=== PATIENT | female | born 1955 | race Caucasian/White ===

== ENCOUNTER → 2017-09-09 09:01 | Outpatient (REF) | payer BC, SELFPAY ==
[2017-09-09 15:11] LABS: Amphetamine/Metha Screen,Urine Negative ng/mL (<1000); Barbiturates Screen,Urine Negative ng/mL (<200); Benzodiazepines Screen,Urine Positive ng/mL (200); Cannabinoid Screen,Urine Negative ng/mL (<50); Cocaine Screen,Urine Negative ng/g (<300); Methadone Screen,Urine Negative ng/mL (<300); Opiate Screen,Urine Negative ng/mL (<300); Phencyclidine Screen,Urine Negative ng/mL (<25)
== END ==
LOC: LAB 09:01
PROVIDERS: Visit Provider Emergency Medicine
DX: Z79.899 Other long term (current) drug therapy (principal)
CPT/HCPCS: 80305

== ENCOUNTER → 2017-12-08 08:48 | Outpatient (REF) | payer BC, SELFPAY ==
[2017-12-08 13:43] LABS: Amphetamine/Metha Screen,Urine Negative ng/mL (<1000); Barbiturates Screen,Urine Negative ng/mL (<200); Benzodiazepines Screen,Urine Positive ng/mL (200); Cannabinoid Screen,Urine Negative ng/mL (<50); Cocaine Screen,Urine Negative ng/g (<300); Methadone Screen,Urine Negative ng/mL (<300); Opiate Screen,Urine Negative ng/mL (<300); Phencyclidine Screen,Urine Negative ng/mL (<25)
== END ==
LOC: LAB 08:48
PROVIDERS: Visit Provider Nurse Practitioner Family
DX: Z79.899 Other long term (current) drug therapy (principal)
CPT/HCPCS: 80305

== ENCOUNTER → 2018-02-16 09:14 | Outpatient (REF) | payer BC, SELFPAY ==
[2018-02-16 15:07] LABS: Amphetamine/Metha Screen,Urine Negative ng/mL (<1000); Barbiturates Screen,Urine Negative ng/mL (<200); Benzodiazepines Screen,Urine Positive ng/mL (<200); Cannabinoid Screen,Urine Negative ng/mL (<50); Cocaine Screen,Urine Negative ng/mL (<300); Methadone Screen,Urine Negative ng/mL (<300); Opiate Screen,Urine Negative ng/mL (<300); Phencyclidine Screen,Urine Negative ng/mL (<25)
== END ==
LOC: LAB 09:14
PROVIDERS: Visit Provider Nurse Practitioner Family
DX: Z79.899 Other long term (current) drug therapy (principal)
CPT/HCPCS: 80305

== ENCOUNTER → 2018-05-18 14:26 | Outpatient (CLI) | payer MEDICAID, SELFPAY ==
[2018-05-18 15:04] LABS: Amphetamine/Metha Screen,Urine Negative ng/mL (<1000); Barbiturates Screen,Urine Negative ng/mL (<200); Benzodiazepines Screen,Urine Positive ng/mL (<200); Cannabinoid Screen,Urine Negative ng/mL (<50); Cocaine Screen,Urine Negative ng/mL (<300); Methadone Screen,Urine Negative ng/mL (<300); Opiate Screen,Urine Negative ng/mL (<300); Phencyclidine Screen,Urine Negative ng/mL (<25)
[2018-05-23 12:17] LABS: Alprazolam Negative (Cutoff=100); Benzodiazepines Negative ng/mL (Cutoff=100); Clonazepam Negative (Cutoff=100); Flurazepam Negative (Cutoff=100); Lorazepam Negative (Cutoff=100); Midazolam Negative (Cutoff=100); Temazepam Negative (Cutoff=100); Triazolam Negative (Cutoff=100)
== END ==
PROVIDERS: Visit Provider Nurse Practitioner Family
DX: Z79.899 Other long term (current) drug therapy (principal)
CPT/HCPCS: 80305; 80346

== ENCOUNTER → 2018-10-03 06:09 | Outpatient (CLI) | payer MEDICAID, SELFPAY ==
--- NOTE | 2018-10-03 06:21 | NM_ITS ---
CARDIOLITE SPECT MYOCARDIAL PERFUSION LEXISCAN, REST AND STRESS: [facility] REVIEW QGS EF AND WALL MOTION EVALUATION: QPS - PERFUSION EVALUATION HISTORY: Chest pain, SOB, Fatigue, HTN, Tobacco use, Family history DOSE: 10.70 mCi technetium 99m mibi intravenously at rest followed by 32.3 mCi technetium 99m mibi following the intravenous ministration of 0.4 mg of Lexiscan. Resting blood pressure is 162/82. Stress blood pressure 131/58. FINDINGS: Ejection fraction is calculated to be 77%. Stress images reveal decreased activity in the inferior lateral wall. Rest images reveal improved activity in the lateral wall with decreased activity in the inferior wall IMPRESSION: Reversible ischemia in the lateral wall with a fixed defect in the inferior wall. Normal ejection fraction and normal wall motion. This is a high risk stress test
--- NOTE | 2018-10-03 07:17 | HMH.ITSHM ---
Current Home Medications as stated by this patient Jacqueline Pittman or personal service representative. []ATORVASTATIN LISINOPRIL ASA PROAIR VITAMIN D3 VITAMIN D
== END ==
PROVIDERS: PCP Emergency Medicine; Visit Provider Emergency Medicine
DX: R07.9 Chest pain, unspecified (principal)
CPT/HCPCS: 78452; 93017; A9502; J2785

== ENCOUNTER → 2019-01-10 13:59 | Outpatient (CLI) | payer MEDICAID, SELFPAY ==
[2019-01-10 15:24] LABS: Amphetamine/Metha Screen,Urine Negative ng/mL (<1000); Barbiturates Screen,Urine Negative ng/mL (<200); Benzodiazepines Screen,Urine Positive ng/mL (<200); Cannabinoid Screen,Urine Negative ng/mL (<50); Cocaine Screen,Urine Negative ng/mL (<300); Methadone Screen,Urine Negative ng/mL (<300); Opiate Screen,Urine Negative ng/mL (<300); Phencyclidine Screen,Urine Negative ng/mL (<25)
== END ==
PROVIDERS: Visit Provider Emergency Medicine
DX: Z79.899 Other long term (current) drug therapy (principal)
CPT/HCPCS: 80305

== ENCOUNTER → 2019-04-02 13:53 | Outpatient (CLI) | payer MEDICAID, SELFPAY ==
[2019-04-02 17:02] LABS: Amphetamine/Metha Screen,Urine Negative ng/mL (<1000); Barbiturates Screen,Urine Negative ng/mL (<200); Benzodiazepines Screen,Urine Positive ng/mL (<200); Cannabinoid Screen,Urine Negative ng/mL (<50); Cocaine Screen,Urine Negative ng/mL (<300); Methadone Screen,Urine Negative ng/mL (<300); Opiate Screen,Urine Negative ng/mL (<300); Phencyclidine Screen,Urine Negative ng/mL (<25)
== END ==
PROVIDERS: Visit Provider Emergency Medicine
DX: F41.9 Anxiety disorder, unspecified (principal)
CPT/HCPCS: 80305

== ENCOUNTER → 2019-07-02 13:54 | Outpatient (CLI) | payer OTHER, SELFPAY ==
[2019-07-02 14:08] LABS: Amphetamine/Metha Screen,Urine Negative ng/mL (<1000); Barbiturates Screen,Urine Negative ng/mL (<200); Benzodiazepines Screen,Urine Positive ng/mL (<200); Cannabinoid Screen,Urine Negative ng/mL (<50); Cocaine Screen,Urine Negative ng/mL (<300); Methadone Screen,Urine Negative ng/mL (<300); Opiate Screen,Urine Negative ng/mL (<300); Phencyclidine Screen,Urine Negative ng/mL (<25)
[2019-07-05 13:56] LABS: Alprazolam N; Benzodiazepines N; Clonazepam N; Flurazepam N; Lorazepam N; Midazolam N; Temazepam N; Triazolam N
== END ==
PROVIDERS: Visit Provider Emergency Medicine
DX: F41.9 Anxiety disorder, unspecified (principal); Z79.899 Other long term (current) drug therapy
CPT/HCPCS: 80305; 80346

== ENCOUNTER → 2019-10-29 13:22 | Outpatient (CLI) | payer OTHER, SELFPAY ==
[2019-10-29 15:03] LABS: Basophils % 0.7 % (0.1-2.0); Eosinophils # 0.1 K/mm3 (0.0-0.4); Hematocrit 47.7 % (37.0-47.0); Lymphocytes # 1.2 K/mm3 (0.7-4.5); Lymphocytes % 21.2 % (10-50); Mean Corpuscular HGB Conc 31.4 g/dL (31.8-35.4); Mean Corpuscular Hemoglobin 28.5 pg (27.0-31.2); Mean Corpuscular Volume 90.8 fl (81-99); Mean Platelet Volume 9.7 fl (7.4-10.4); Monocytes # 0.3 K/mm3 (0.1-1.0); Monocytes % 4.5 % (1.7-9.3); Neutrophils # 4.1 K/mm3 (1.8-7.8); Neutrophils % 71.6 % (37.0-80.0); Platelet Count 171 K/mm3 (142-424); Red Blood Count 5.25 M/mm3 (4.20-5.40); Red Cell Distribution Width 13.8 % (11.5-17.5); White Blood Count 5.7 K/mm3 (4.8-10.8)
[2019-10-29 15:14] LABS: Alanine Aminotransferase 61 U/L (12-78); Albumin Level 4.5 g/dl (3.5-5.0); Alkaline Phosphatase 114 U/L (38-126); Anion Gap 7.1 mEq/L (5-15); Aspartate Amino Transferase 91 U/L (14-36); Bilirubin,Total 0.4 mg/dl (0.2-1.3); Blood Urea Nitrogen 19 mg/dl (7-17); Carbon Dioxide 33 mmol/L (22.0-30.0); Chloride 103 mmol/L (98-107); Cholesterol 103 mg/dl (140-200); Estimated Glomerular Filt Rate 72 ml/min (>60); GFR (African American) 87 ML/MIN (>60); Globulin 4.4 g/dL (1.3-3.2); Glucose 115 mg/dl (74-100); HDL Cholesterol 34 mg/dl (40-60); Potassium 4.1 mmoL/L (3.5-5.1); Sodium 139 mmol/L (136-145); Total Protein,Serum 8.9 g/dl (6.3-8.2); Triglycerides 294 mg/dl (30-150); VLDL Cholesterol 59 mg/dL (0-40)
[2019-10-29 15:25] LABS: Direct LDL Cholesterol 33.46 mg/dL (100-129)
[2019-10-29 15:31] LABS: T4 (Thyroxine) 7.9 ug/dl (5.53-11.0)
[2019-10-29 15:44] LABS: Thyroid Stimulating Hormone 3.99 uIU/mL (0.465-4.68)
[2019-10-30 15:22] LABS: Vitamin D 25 Hydroxy 73.1 ng/mL (30.0-100.0)
== END ==
PROVIDERS: Visit Provider Emergency Medicine
DX: F41.9 Anxiety disorder, unspecified (principal); M25.569 Pain in unspecified knee
CPT/HCPCS: 80053; 80061; 82652; 84436; 84443; 85025

== ENCOUNTER → 2020-07-28 14:13 | Outpatient (CLI) | payer MEDICARE, MEDICAID, SELFPAY ==
[2020-07-28 15:37] LABS: Amphetamine/Metha Screen,Urine Negative ng/ml (<1000); Barbiturates Screen,Urine Negative ng/ml (<200)
[2020-07-28 15:38] LABS: Benzodiazepines Screen,Urine Positive ng/ml (<200)
[2020-07-28 15:39] LABS: Cannabinoid Screen,Urine Negative ng/ml (<50); Cocaine Screen,Urine Negative ng/ml (<300)
[2020-07-28 15:40] LABS: Methadone Screen,Urine Negative ng/ml (<300)
[2020-07-28 15:42] LABS: Opiate Screen,Urine Negative ng/ml (<300)
[2020-07-28 16:05] LABS: Phencyclidine Screen,Urine Negative ng/ml (<25)
== END ==
PROVIDERS: Visit Provider Emergency Medicine
DX: Z79.899 Other long term (current) drug therapy (principal)
CPT/HCPCS: 80305

== ENCOUNTER → 2021-01-20 15:21 | Outpatient (CLI) | payer MEDICARE, MEDICAID, SELFPAY ==
[2021-01-20 15:58] LABS: Amphetamine/Metha Screen,Urine Negative ng/ml (<1000)
[2021-01-20 15:59] LABS: Barbiturates Screen,Urine Negative ng/ml (<200)
[2021-01-20 16:01] LABS: Benzodiazepines Screen,Urine Positive ng/ml (<200)
[2021-01-20 16:02] LABS: Cannabinoid Screen,Urine Negative ng/ml (<50); Cocaine Screen,Urine Negative ng/ml (<300)
[2021-01-20 16:04] LABS: Methadone Screen,Urine Negative ng/ml (<300); Opiate Screen,Urine Negative ng/ml (<300)
[2021-01-20 16:05] LABS: Phencyclidine Screen,Urine Negative ng/ml (<25)
== END ==
PROVIDERS: Visit Provider Emergency Medicine
DX: Z79.899 Other long term (current) drug therapy (principal)
CPT/HCPCS: 80305

== ENCOUNTER → 2021-01-23 09:50 | Outpatient (CLI) | payer MEDICARE, MEDICAID, SELFPAY ==
[2021-01-23 10:38] LABS: Basophils # 0.1 K/mm3 (0-0.2); Basophils % 1.2 % (0.1-2.0); Eosinophils # 0.1 K/mm3 (0.0-0.4); Eosinophils % 1.6 % (0.1-12.0); Hematocrit 41.1 % (37.0-47.0); Hemoglobin 13.6 g/dL (12.2-16.2); Lymphocytes % 19.7 % (10-50); Mean Corpuscular HGB Conc 33.2 g/dL (31.8-35.4); Mean Corpuscular Hemoglobin 28.4 pg (27.0-31.2); Mean Corpuscular Volume 85.4 fl (81-99); Monocytes # 0.2 K/mm3 (0.1-1.0); Monocytes % 4.6 % (1.7-9.3); Neutrophils # 3.8 K/mm3 (1.8-7.8); Neutrophils % 72.8 % (37.0-80.0); Platelet Count 106 K/mm3 (142-424); Red Blood Count 4.81 M/mm3 (4.20-5.40); Red Cell Distribution Width 14.5 % (11.5-17.5); White Blood Count 5.2 K/mm3 (4.8-10.8)
[2021-01-23 11:10] LABS: Chloride 103 mmol/L (98-107); Sodium 140 mmol/L (136-145)
[2021-01-23 11:13] LABS: Alanine Aminotransferase 63 U/L (12-78); Albumin/Globulin Ratio 1.1 (1.1-1.8); Alkaline Phosphatase 125 U/L (38-126); Aspartate Amino Transferase 73 U/L (14-36); Bilirubin,Total 0.4 mg/dl (0.2-1.3); Blood Urea Nitrogen 15 mg/dl (7-17); Carbon Dioxide 28 mmol/L (22.0-30.0); Cholesterol 106 mg/dl (140-200); Estimated Glomerular Filt Rate 84 ml/min (>60); GFR (African American) 101 ML/MIN (>60); Globulin 3.8 g/dL (1.3-3.2); Total Protein,Serum 7.8 g/dl (6.3-8.2); Triglycerides 191 mg/dl (30-150); VLDL Cholesterol 38 mg/dL (0-40)
[2021-01-23 11:14] LABS: Chol/HDL Ratio 3.4 (1-3.5); Glucose 98 mg/dl (74-100); HDL Cholesterol 31 mg/dl (40-60)
[2021-01-23 11:24] LABS: Direct LDL Cholesterol 35.16 mg/dL (100-129)
[2021-01-23 11:28] LABS: 25-OH Vitamin D, Total 33.2 ng/mL (30-100)
[2021-01-23 11:31] LABS: Free T4 (Free Thyroxine) 0.94 ng/dl (0.78-2.19)
[2021-01-23 11:44] LABS: Thyroid Stimulating Hormone 1.64 uIU/mL (0.465-4.68)
== END ==
PROVIDERS: Visit Provider Emergency Medicine
DX: E66.9 Obesity, unspecified (principal); R06.00 Dyspnea, unspecified; E55.9 Vitamin D deficiency, unspecified; Z68.32 Body mass index [BMI] 32.0-32.9, adult
CPT/HCPCS: 36415; 80053; 80061; 82306; 84439; 84443; 85025

== ENCOUNTER → 2021-07-13 15:30 | Outpatient (CLI) | payer MEDICARE, MEDICAID, SELFPAY | PROVIDERS: Visit Provider Emergency Medicine | DX: R05.9 Cough, unspecified (principal); U07.1 COVID-19 | CPT/HCPCS: C9803; U0003; U0005 ==

== ENCOUNTER → 2021-10-07 10:06 | Outpatient (CLI) | payer MEDICARE, MEDICAID, SELFPAY ==
[2021-10-07 14:42] LABS: Barbiturates Screen,Urine Negative ng/ml (<200); Benzodiazepines Screen,Urine Positive ng/ml (<200)
[2021-10-07 14:43] LABS: Amphetamine/Metha Screen,Urine Negative ng/ml (<1000)
[2021-10-07 14:44] LABS: Cannabinoid Screen,Urine Negative ng/ml (<50); Cocaine Screen,Urine Negative ng/ml (<300)
[2021-10-07 14:45] LABS: Methadone Screen,Urine Negative ng/ml (<300); Opiate Screen,Urine Negative ng/ml (<300)
[2021-10-07 14:46] LABS: Phencyclidine Screen,Urine Negative ng/ml (<25)
== END ==
PROVIDERS: PCP Emergency Medicine; Visit Provider Emergency Medicine
DX: Z79.899 Other long term (current) drug therapy (principal)
CPT/HCPCS: 80305

== ENCOUNTER 2022-03-15 09:34 | Emergency (ER) | payer MEDICARE, MEDICAID, SELFPAY ==
--- NOTE | 2022-03-15 10:10 | XR_ITS ---
FINAL REPORT CLINICAL HISTORY: FALL FINDINGS: 3 views of the left ribs were obtained. Anterolateral left 5th, 6th, and 7th rib fractures. Trace left pleural effusion. There is no pneumothorax. A single view of the chest demonstrates no acute cardiopulmonary process. IMPRESSION: Left anterolateral 5th, 6th and 7th rib fractures without pneumothorax. Reviewed, Interpreted and Dictated by Colleen Curiel MD Transcribed by Sam Smith Authenticated and [facility]
[2022-03-15 10:45] VITALS: BP 123/64; PULSE 90; RESP 18; TEMP 36.8; O2SAT 98; BMI 31.9
--- NOTE | 2022-03-15 11:11 | EXP.UTC ---
Discharge Plan Disposition Patient Disposition: Home, Self-Care Condition: Good Prescriptions Prescriptions: New lidocaine 5 % adhesive patch,medicated 1 patch topical DAILY Qty: 15 0RF Rx Instructions: leave on most painful area for up to 12 hrs then remove for 12 hours No Action aspirin 81 mg tablet,delayed release (DR/EC) See Rx Instructions .ROUTE .COMPLEX Qty: 30 6RF Dose Instruction: TAKE ONE TABLET BY MOUTH ONCE A DAY Rx Instructions: TAKE ONE TABLET BY MOUTH ONCE A DAY atorvastatin 80 mg tablet See Rx Instructions .ROUTE .COMPLEX Qty: 30 6RF Dose Instruction: TAKE ONE TABLET BY MOUTH AT BEDTIME Rx Instructions: TAKE ONE TABLET BY MOUTH AT BEDTIME ergocalciferol (vitamin D2) 1,250 mcg (50,000 unit) capsule See Rx Instructions .ROUTE .COMPLEX Qty: 4 3RF Dose Instruction: TAKE ONE CAPSULE BY MOUTH EVERY WEEK Rx Instructions: TAKE ONE CAPSULE BY MOUTH EVERY WEEK Trelegy Ellipta 100-62.5-25 mcg blister with device See Rx Instructions .ROUTE .COMPLEX Qty: 60 3RF Dose Instruction: INHALE 1 PUFF BY MOUTH ONCE A DAY Rx Instructions: INHALE 1 PUFF BY MOUTH ONCE A DAY losartan-hydrochlorothiazide 100-12.5 mg tablet 1 tab PO DAILY Qty: 30 5RF Rx Instructions: 1 tab PO daily; verapamil 120 mg capsule,ext rel. pellets 24 hr See Rx Instructions .ROUTE .COMPLEX Qty: 30 6RF Dose Instruction: TAKE ONE CAPSULE BY MOUTH ONCE A DAY Rx Instructions: TAKE ONE CAPSULE BY MOUTH ONCE A DAY diazepam 5 mg tablet 5 mg PO BID Qty: 60 2RF gabapentin 300 mg capsule 300 mg PO TID Qty: 90 2RF cetirizine 10 mg tablet See Rx Instructions .ROUTE .COMPLEX Qty: 90 3RF Dose Instruction: TAKE ONE TABLET BY MOUTH EVERY DAY Rx Instructions: TAKE ONE TABLET BY MOUTH EVERY DAY albuterol sulfate 90 mcg/actuation HFA aerosol inhaler See Rx Instructions .ROUTE .COMPLEX Qty: 8.5 3RF Dose Instruction: INHALE 2 PUFFS BY MOUTH EVERY 4 TO 6 HOURS NEEDED FOR SHORTNESS OF BREATH OR WHEEZING Rx Instructions: INHALE 2 PUFFS BY MOUTH EVERY 4 TO 6 HOURS NEEDED FOR SHORTNESS OF BREATH OR WHEEZING Referrals Follow up/Referrals: Herrera Kidd MD [Primary Care Provider] - See instructions Activity Restrictions/Add. Instructions Additional Instructions/Restrictions: *Ibuprofen braak 6 hours with meal as needed for pain/inflammation *Not additional anti-inflammatory like motrin, aleve, advil with the above amount of ibuprofen. You can still take Tylenol every 4 hours as needed if you need something else for pain *Ice 20 minutes every 2 hours for the first 48 hours after the initial injury followed by moist heat every 20 minutes 3-4 times a day to affected area Over the counter lidocaine patches may help with pain *Keep this area active, no movement leads to more stiffness, However take it easy and avoid heavy lifting pushing or pulling *Follow up with you family doctor if no improvement for further treatment ? Clinical Impressions Clinical Impression: Multiple rib fractures Qualifiers: Encounter type: initial encounter Fracture type: closed Laterality: left Qualified Code(s): S22.42XA - Multiple fractures of ribs, left side, initial encounter for closed fracture Instructions Patient Instructions: Rib Fracture, DI for Rib Fracture, Lidocaine Transdermal Patch Discharge ED Provider: Socorro Jo [facility] General Stated complaint: Fall@home 03/13/22 rib pain Mode of Arrival: Ambulatory Source of Information: Patient Limitations: No Limitations Time Seen by Provider: 03/15/22 11:11 Description of Symptoms (Recalled from Triage Doc. by RN): PATIENT C/O LEFT RIB PAIN AFTER FALLING IN BATHTUB ON TUESDAY HEENT Symptoms (Recalled from RN notes): No Resp Symptoms (Recalled from RN notes): No Skin Symptoms (Recalled from RN notes): No MS Symptoms (Recalled from
[2022-03-15 11:49] VITALS: BP 123/64; PULSE 90; RESP 18; TEMP 36.8; O2SAT 98
== END 2022-03-15 11:52 | disposition home or self-care (01) ==
PROVIDERS: Emergency Provider Nurse Practitioner; PCP Emergency Medicine
DX: S22.42XA Multiple fractures of ribs, left side, initial encounter for closed fracture (principal); M79.606 Pain in leg, unspecified; R06.02 Shortness of breath; I10 Essential (primary) hypertension; I48.91 Unspecified atrial fibrillation; F17.210 Nicotine dependence, cigarettes, uncomplicated; Z79.51 Long term (current) use of inhaled steroids; Z79.82 Long term (current) use of aspirin; Z79.899 Other long term (current) drug therapy; Z88.5 Allergy status to narcotic agent; Z88.8 Allergy status to other drugs, medicaments and biological substances; W18.2XXA Fall in (into) shower or empty bathtub, initial encounter
CPT/HCPCS: 71101; 99213; G0463

== ENCOUNTER → 2022-03-24 13:40 | Outpatient (CLI) | payer MEDICARE, MEDICAID, SELFPAY ==
[2022-03-24 19:27] LABS: Amphetamine/Metha Screen,Urine Negative ng/ml (<1000)
[2022-03-24 19:29] LABS: Barbiturates Screen,Urine Negative ng/ml (<200)
[2022-03-24 19:30] LABS: Benzodiazepines Screen,Urine Positive ng/ml (<200); Cannabinoid Screen,Urine Negative ng/ml (<50)
[2022-03-24 19:32] LABS: Cocaine Screen,Urine Negative ng/ml (<300)
[2022-03-24 19:33] LABS: Methadone Screen,Urine Negative ng/ml (<300)
[2022-03-24 19:34] LABS: Opiate Screen,Urine Negative ng/ml (<300); Phencyclidine Screen,Urine Negative ng/ml (<25)
== END ==
PROVIDERS: PCP Emergency Medicine; Visit Provider Emergency Medicine
DX: Z79.899 Other long term (current) drug therapy (principal)
CPT/HCPCS: 80305

== ENCOUNTER → 2022-06-23 14:48 | Outpatient (CLI) | payer MEDICARE, MEDICAID, SELFPAY ==
[2022-06-23 17:25] LABS: Amphetamine/Metha Screen,Urine Negative ng/ml (<1000)
[2022-06-23 17:26] LABS: Barbiturates Screen,Urine Negative ng/ml (<200)
[2022-06-23 17:27] LABS: Benzodiazepines Screen,Urine Positive ng/ml (<200); Cannabinoid Screen,Urine Negative ng/ml (<50)
[2022-06-23 17:28] LABS: Cocaine Screen,Urine Negative ng/ml (<300)
[2022-06-23 17:29] LABS: Methadone Screen,Urine Negative ng/ml (<300); Opiate Screen,Urine Negative ng/ml (<300)
[2022-06-23 17:30] LABS: Phencyclidine Screen,Urine Negative ng/ml (<25)
== END ==
PROVIDERS: PCP Emergency Medicine; Visit Provider Emergency Medicine
DX: Z79.899 Other long term (current) drug therapy (principal)
CPT/HCPCS: 80305

== ENCOUNTER → 2022-09-17 23:42 | Outpatient (CLI) | payer MEDICARE, MEDICAID, SELFPAY ==
[2022-09-17 19:47] LABS: Amphetamine/Metha Screen,Urine Negative ng/ml (<1000)
[2022-09-17 19:48] LABS: Barbiturates Screen,Urine Negative ng/ml (<200); Benzodiazepines Screen,Urine Positive ng/ml (<200)
[2022-09-17 19:49] LABS: Cannabinoid Screen,Urine Negative ng/ml (<50)
[2022-09-17 19:50] LABS: Cocaine Screen,Urine Negative ng/ml (<300); Methadone Screen,Urine Negative ng/ml (<300)
[2022-09-17 19:51] LABS: Opiate Screen,Urine Negative ng/ml (<300)
[2022-09-17 19:52] LABS: Phencyclidine Screen,Urine Negative ng/ml (<25)
== END ==
PROVIDERS: PCP Emergency Medicine; Visit Provider Emergency Medicine
DX: Z79.899 Other long term (current) drug therapy (principal)
CPT/HCPCS: 80305

== ENCOUNTER → 2022-11-26 12:42 | Outpatient (CLI) | payer MEDICARE, MEDICAID, SELFPAY ==
--- NOTE | 2022-11-26 12:46 | CA_ITS ---
FINAL REPORT CLINICAL HISTORY: bruit, hx-stroke, afib, smoker COMPARISON: None FINDINGS: RIGHT CAROTID: CCA PSV 56 cm/sec ICA PSV 121 cm/sec ICA/CCA PSV ratio 2.44 Comments: Moderate plaque disease is noted. LEFTCAROTID: CCA PSV 101 cm/sec ICA PSV 104 cm/sec ICA/CCA PSV ratio 1.16 Comments: Mild plaque disease is noted. Antegrade flow is seen within the vertebral arteries. IMPRESSION: Less than 50% stenosis bilaterally. Reviewed, Interpreted and Dictated by Colleen Curiel MD Transcribed by Julia Nunez Authenticated and . [facility]
== END ==
PROVIDERS: PCP Emergency Medicine; Visit Provider Physician Assistant
DX: R01.1 Cardiac murmur, unspecified (principal); R09.89 Other specified symptoms and signs involving the circulatory and respiratory systems
CPT/HCPCS: 93306; 93880

== ENCOUNTER → 2022-12-15 09:30 | Outpatient (CLI) | payer MEDICARE, MEDICAID, SELFPAY ==
[2022-12-15 15:52] LABS: Barbiturates Screen,Urine Negative ng/ml (<200)
[2022-12-15 15:53] LABS: Benzodiazepines Screen,Urine Positive ng/ml (<200)
[2022-12-15 15:54] LABS: Amphetamine/Metha Screen,Urine Negative ng/ml (<1000); Methadone Screen,Urine Negative ng/ml (<300)
[2022-12-15 15:55] LABS: Cannabinoid Screen,Urine Negative ng/ml (<50)
[2022-12-15 15:56] LABS: Cocaine Screen,Urine Negative ng/ml (<300); Opiate Screen,Urine Negative ng/ml (<300)
[2022-12-15 15:57] LABS: Phencyclidine Screen,Urine Negative ng/ml (<25)
[2022-12-15 15:57] LABS: Basophils % 0.4 % (0.1-2.0); Eosinophils # 0.1 K/mm3 (0.0-0.4); Eosinophils % 1.4 % (0.1-12.0); Lymphocytes # 0.6 K/mm3 (0.7-4.5); Lymphocytes % 13.3 % (10-50); Mean Corpuscular Hemoglobin 26.9 pg (27.0-31.2); Mean Corpuscular Volume 86.9 fl (81-99); Mean Platelet Volume 8.9 fl (7.4-10.4); Monocytes # 0.3 K/mm3 (0.1-1.0); Monocytes % 7.1 % (1.7-9.3); Neutrophils # 3.5 K/mm3 (1.8-7.8); Neutrophils % 77.8 % (37.0-80.0); Platelet Count 158 K/mm3 (142-424); Red Blood Count 4.84 M/mm3 (4.20-5.40); Red Cell Distribution Width 15.3 % (11.5-17.5); White Blood Count 4.5 K/mm3 (4.8-10.8)
[2022-12-15 16:11] LABS: Alanine Aminotransferase 47 U/L (12-78); Albumin Level 3.4 g/dl (3.5-5.0); Albumin/Globulin Ratio 0.8 (1.1-1.8); Alkaline Phosphatase 167 U/L (38-126); Anion Gap 15.1 mEq/L (5-15); Aspartate Amino Transferase 95 U/L (14-36); Bilirubin,Total 0.4 mg/dl (0.2-1.3); Blood Urea Nitrogen 24 mg/dl (7-17); Calcium 8.7 mg/dl (8.4-10.2); Carbon Dioxide 25 mmol/L (22.0-30.0); Chloride 106 mmol/L (98-107); Chol/HDL Ratio 3.2 (1-3.5); Cholesterol 79 mg/dl (140-200); Estimated Glomerular Filt Rate 38 ml/min (>60); GFR (African American) 45 ML/MIN (>60); Globulin 4.1 g/dL (1.3-3.2); Glucose 97 mg/dl (74-100); HDL Cholesterol 25 mg/dl (40-60); Potassium 4.1 mmoL/L (3.5-5.1); Sodium 142 mmol/L (136-145); Total Protein,Serum 7.5 g/dl (6.3-8.2); Triglycerides 142 mg/dl (30-150); VLDL Cholesterol 28 mg/dL (0-40)
[2022-12-15 16:26] LABS: Direct LDL Cholesterol < 30.00 mg/dL (100-129)
[2022-12-15 16:28] LABS: Free T4 (Free Thyroxine) 0.95 ng/dl (0.78-2.19)
[2022-12-15 16:30] LABS: 25-OH Vitamin D, Total 45.9 ng/mL (30-100)
[2022-12-15 16:41] LABS: Thyroid Stimulating Hormone 4.51 uIU/mL (0.465-4.68)
== END ==
PROVIDERS: PCP Emergency Medicine; Visit Provider Emergency Medicine
DX: Z79.899 Other long term (current) drug therapy (principal); M54.9 Dorsalgia, unspecified; E66.9 Obesity, unspecified; E55.9 Vitamin D deficiency, unspecified; Z68.29 Body mass index [BMI] 29.0-29.9, adult
CPT/HCPCS: 80053; 80061; 80305; 82306; 84439; 84443; 85025

== ENCOUNTER → 2023-01-05 08:46 | Outpatient (CLI) | payer MEDICARE, MEDICAID, SELFPAY ==
--- NOTE | 2023-01-05 09:07 | US_ITS ---
FINAL REPORT TECHNIQUE: Sonographic images of the right upper quadrant were obtained. CLINICAL HISTORY: liver enzymes elevated FINDINGS: PANCREAS: There is a 1 cm anechoic lesion in the pancreas which could be an epithelial cyst or pseudocyst, small cystic neoplasm is not excluded. LIVER: Homogeneous but enlarged. The portal and hepatic veins are patent with normal directional flow. GALLBLADDER: The gallbladder surgically absent. COMMON DUCT: 5 mm. Normal for age. RIGHT KIDNEY: The right kidney measures 9.9 cm. There is no hydronephrosis, mass, or stone. FREE FLUID: None. IMPRESSION: Hepatomegaly. Anechoic lesion in the pancreas, small cystic neoplasm is not excluded. Consider MRCP to further evaluate. Reviewed, Interpreted and Dictated by Debi Garcia MD Transcribed by Vrea Mahajan Authenticated and . [facility]
[2023-01-05 10:26] LABS: Blood Urea Nitrogen 19 mg/dl (7-17); Carbon Dioxide 24 mmol/L (22.0-30.0); Chloride 109 mmol/L (98-107); Estimated Glomerular Filt Rate 72 ml/min (>60); GFR (African American) 87 ML/MIN (>60); Glucose 98 mg/dl (74-100); Sodium 140 mmol/L (136-145)
[2023-01-06 09:53] LABS: HBsAg Screen Negative (Negative); HCV Ab Non Reactive (Non Reactive); Hep A Ab, IGM Negative (Negative); Hep B Core Ab, IgM Negative (Negative)
== END ==
LOC: RAD 08:46
PROVIDERS: PCP Emergency Medicine; Visit Provider Emergency Medicine
DX: E66.3 Overweight (principal); B19.20 Unspecified viral hepatitis C without hepatic coma; Z68.29 Body mass index [BMI] 29.0-29.9, adult
CPT/HCPCS: 36415; 76705; 80048; 80074

== ENCOUNTER → 2023-01-24 07:28 | Outpatient (CLI) | payer MEDICARE, MEDICAID, SELFPAY ==
--- NOTE | 2023-01-24 07:28 | MR_ITS ---
FINAL REPORT CLINICAL HISTORY: enlarged liver, possible cystic lesion of pancreas COMPARISON: Ultrasound liver 01/05/2023 FINDINGS: Multiplanar MR imaging of the abdomen was performed without contrast. MRCP was also performed. 3D images were also obtained and reviewed. The liver has a somewhat lobular contour which may represent cirrhosis. No evidence of hepatic mass. Postcholecystectomy. Mild to moderate biliary ductal dilatation. Common hepatic duct measures up to 15 mm. No evidence of bile duct stone or stricture. There is a small amount of ascites. There is splenomegaly with the spleen measuring 17 cm in length. There is a cystic mass in the body of the pancreas measuring 13 mm. Differential diagnosis includes pseudocyst, cyst, or cystic neoplasm. There are several bilateral renal cysts with the largest on the left measuring 19 mm. IMPRESSION: 13 mm pancreatic cystic mass. Postcholecystectomy. Biliary ductal dilatation with no evidence of duct stone or stricture. Findings consistent with cirrhosis with portal hypertension. Reviewed, Interpreted and Dictated by Nimesh Cantu III, MD Transcribed by Julia Nunez Authenticated and [facility]
--- NOTE | 2023-01-24 08:18 | CT_ITS ---
FINAL REPORT TECHNIQUE: Axial CT images of the abdomen were obtained without contrast. Coronal reformatted images were also obtained.This study was performed with techniques to keep radiation doses as low as reasonably achievable (ALARA). Individualized dose reduction techniques using automated exposure control or adjustment of mA and/or kV according to the patient''s size were employed. CLINICAL HISTORY: enlarged liver, possible cystic lesion of pancreas COMPARISON: Ultrasound liver 01/05/2023 FINDINGS: There is small right pleural effusion or pleural thickening. The liver has an irregular contour worrisome for cirrhosis. Postcholecystectomy. There is biliary ductal dilatation. There is a 13 mm cystic mass in the body of the pancreas. This is not as well seen as on MRI performed same day. There is splenomegaly with the spleen measuring approximately 17 cm in length. Renal cyst seen on MRI performed same day as is well visualized. There is no evidence of renal stone or hydronephrosis. There are multiple mildly enlarged gastrohepatic nodes, portal and portacaval nodes. These are nonspecific and may be reactive. There is a small amount of ascites. No localized inflammatory processes identified. IMPRESSION: Liver findings worrisome for cirrhosis. Biliary ductal dilatation. 13 mm cystic pancreatic mass. Splenomegaly. Multiple nonspecific enlarged abdominal nodes. Small amount of ascites. Reviewed, Interpreted and Dictated by Nimesh Cantu III, MD Transcribed by Julia Nunez Authenticated and . [facility]
== END ==
LOC: RAD 07:28
PROVIDERS: PCP Emergency Medicine; Visit Provider Emergency Medicine
DX: R16.0 Hepatomegaly, not elsewhere classified (principal)
CPT/HCPCS: 74150; 74181; 76376

== ENCOUNTER → 2023-03-07 09:40 | Outpatient (CLI) | payer MEDICARE, MEDICAID, SELFPAY ==
[2023-03-07 15:34] LABS: Amphetamine/Metha Screen,Urine Negative ng/ml (<1000); Benzodiazepines Screen,Urine Positive ng/ml (<200)
[2023-03-07 15:35] LABS: Barbiturates Screen,Urine Negative ng/ml (<200); Methadone Screen,Urine Negative ng/ml (<300)
[2023-03-07 15:36] LABS: Cannabinoid Screen,Urine Negative ng/ml (<50)
[2023-03-07 15:37] LABS: Cocaine Screen,Urine Negative ng/ml (<300)
[2023-03-07 15:38] LABS: Opiate Screen,Urine Negative ng/ml (<300)
[2023-03-07 15:39] LABS: Phencyclidine Screen,Urine Negative ng/ml (<25)
== END ==
PROVIDERS: PCP Emergency Medicine; Visit Provider Emergency Medicine
DX: Z79.899 Other long term (current) drug therapy (principal)
CPT/HCPCS: 80305

== ENCOUNTER 2023-11-10 12:03 | Outpatient (CLI) | payer MEDICARE, MEDICAID, SELFPAY ==
--- NOTE | 2023-11-10 12:04 | CA_ITS ---
APPROVED REPORT EXAM: Comprehensive 2D, Doppler, and color-flow Echocardiogram Strategy Director: Gretchen Ramos RDCS Ht: 5 ft 9 in Wt: 198lbs BSA: 2.06 BP: 148/70 mmHg Indications: SOA,COPD,EDEMA,AF,HTN,HLP M-Mode Dimensions RVDd 1.57 cm (0.9-2.6) LVDd 7.09 cm (3.5-5.7) LVDs 4.66 cm (3.5-5.7) IVSd 0.81 cm (0.6-1.1) PWd 0.85 cm (0.6-1.1) EF (Teich) 61.80% FS 34.30% EDV (Teich) 262.90 mL TAPSE 2.74 (<1.7) ESV (Teich) 100.30 mL LV Diastology E Decel Time 403 (160-240 msec) E/A Ratio 0.7 Aortic Valve FLORIDALMA Index 1.28 cm2/m2 AoV Peak Jose. 178.0 (50-130 cm/s) AO Peak GR. 12.70 mmHg AO Mean GR. 6.30 (<5 mmHg) AO VTI 35.3 (18-25 cm) FLORIDALMA (VTI) 2.70 (2.5-4.5 cm2) Mitral Valve MV E Max Jose. 69.0 (40-130 cm/s) MV A Velocity 94.0 (40-130 cm/s) E/A Ratio 0.73 MV PHT 118.0 ms Left Ventricle The left ventricle is normal size. The left ventricular systolic function is normal. The left ventricular ejection fraction is within the normal range. There is increased LV wall thickness. There is normal LV segmental wall motion. Transmitral Doppler flow pattern suggests impaired LV relaxation. LVEF is 60%. Right Ventricle Right ventricle is mildly dilated. The right ventricular systolic function is normal. Atria The left atrium size is normal. The right atrium size is normal. There is no Doppler evidence of interatrial shunt. Aortic Valve The aortic valve is mildly thickened. There is no aortic valvular stenosis. Trace aortic regurgitation. Mitral Valve The mitral valve is normal in structure. No evidence of mitral valve stenosis. There is no mitral valve regurgitation noted. Tricuspid Valve The tricuspid valve leaflets are thin and pliable. Trace tricuspid regurgitation. There is insufficient TR jet to estimate RVSP. Pulmonic Valve The pulmonary valve is normal in structure. Trace pulmonic regurgitation. Great Vessels The aortic root is not well visualized. IVC is normal in size and collapses >50% with inspiration. Pericardium There is no pericardial effusion. Other Information Study Quality: Technically Difficult Conclusion Technically diffiucult study due to poor accoustic windows. Normal biventricular systolic function. Mild RV dilation. No significant valvular stenosis or regurgitation. Electronically signed by : Marissa Mercado MD 11/13/2023 21:54:02
--- NOTE | 2023-11-10 12:33 | XR_ITS ---
FINAL REPORT CLINICAL HISTORY: dyspnea FINDINGS: 2 views of the chest were obtained . The heart is normal in size. The mediastinum is within normal limits. There is abnormal opacity at the right lung base which appears to be related to a partially loculated effusion. There is no pneumothorax. Osseous structures are unremarkable. IMPRESSION: Abnormal opacity at the right lung base which appears to be related to a partially loculated effusion. Reviewed, Interpreted and Dictated by Connor Carlin MD Transcribed by Karin Hoffmann Authenticated and [facility]
[2023-11-10 12:50] LABS: Basophils % 0.8 % (0.1-2.0); Eosinophils % 1.1 % (0.1-12.0); Hemoglobin 11.4 g/dL (12.2-16.2); Lymphocytes # 0.5 K/mm3 (0.7-4.5); Lymphocytes % 15.1 % (10-50); Mean Corpuscular HGB Conc 31.5 g/dL (31.8-35.4); Mean Corpuscular Hemoglobin 28.3 pg (27.0-31.2); Mean Corpuscular Volume 89.8 fl (81-99); Mean Platelet Volume 9.3 fl (7.4-10.4); Monocytes # 0.2 K/mm3 (0.1-1.0); Monocytes % 6.4 % (1.7-9.3); Neutrophils # 2.3 K/mm3 (1.8-7.8); Neutrophils % 76.6 % (37.0-80.0); Platelet Count 98 K/mm3 (142-424); Red Blood Count 4.01 M/mm3 (4.20-5.40); Red Cell Distribution Width 16.6 % (11.5-17.5)
[2023-11-10 14:03] LABS: Hemoglobin A1C 5.1 % (4.0-6.0)
[2023-11-10 14:07] LABS: Chloride 107 mmol/L (98-107); Potassium 3.8 mmoL/L (3.5-5.1); Sodium 140 mmol/L (136-145)
[2023-11-10 14:08] LABS: Chol/HDL Ratio 2.5 (1-3.5); Cholesterol 65 mg/dl (140-200); HDL Cholesterol 26 mg/dl (40-60); Triglycerides 100 mg/dl (30-150); VLDL Cholesterol 20 mg/dL (0-40)
[2023-11-10 14:10] LABS: Anion Gap 10.8 mEq/L (5-15); Blood Urea Nitrogen 23 mg/dl (7-17); Carbon Dioxide 26 mmol/L (22.0-30.0); Estimated Glomerular Filt Rate 49 ml/min (>60); GFR (African American) 60 ML/MIN (>60)
[2023-11-10 14:11] LABS: Calcium 8.5 mg/dl (8.4-10.2); Glucose 97 mg/dl (74-100)
[2023-11-10 14:26] LABS: 25-OH Vitamin D, Total 72.1 ng/mL (30-100); Direct LDL Cholesterol < 30.00 mg/dL (100-129)
[2023-11-10 15:25] LABS: Thyroid Stimulating Hormone 3.88 uIU/mL (0.465-4.68)
== END 2023-11-10 23:59 | disposition home or self-care (01) ==
LOC: RT 12:03
PROVIDERS: PCP Student in an Organized Health Care Education/Training Program; Visit Provider Nurse Practitioner Family
DX: R06.09 Other forms of dyspnea (principal); R60.9 Edema, unspecified; R73.9 Hyperglycemia, unspecified; E55.9 Vitamin D deficiency, unspecified; I10 Essential (primary) hypertension; E78.5 Hyperlipidemia, unspecified; R53.83 Other fatigue; R06.00 Dyspnea, unspecified
CPT/HCPCS: 36415; 71046; 80048; 80061; 82306; 83036; 84443; 85025; 93306

== ENCOUNTER 2023-11-28 09:50 | Outpatient (CLI) | payer MEDICARE, MEDICAID, SELFPAY ==
--- NOTE | 2023-11-28 09:51 | US_ITS ---
FINAL REPORT CLINICAL HISTORY: pleural effusion - R FINDINGS: ULTRASOUND CHEST Limited sonographic images of the chest were obtained. No fluid is seen within the left or right chest. IMPRESSION: No evidence of right or left pleural effusion. Reviewed, Interpreted and Dictated by Nimesh Cantu III, MD Transcribed by Fátima Harrison Authenticated and . [facility]
== END 2023-11-28 23:59 | disposition home or self-care (01) ==
LOC: RAD 09:51
PROVIDERS: PCP Student in an Organized Health Care Education/Training Program; Visit Provider Student in an Organized Health Care Education/Training Program
DX: J90 Pleural effusion, not elsewhere classified (principal); F17.210 Nicotine dependence, cigarettes, uncomplicated
CPT/HCPCS: 76604

== ENCOUNTER 2024-02-13 07:49 | Outpatient (CLI) | payer MEDICARE, MEDICAID, SELFPAY ==
[2024-02-13 08:13] LABS: Basophils % 0.4 % (0.1-2.0); Eosinophils # 0.1 K/mm3 (0.0-0.4); Eosinophils % 2.3 % (0.1-12.0); Hematocrit 35.8 % (37.0-47.0); Hemoglobin 11.3 g/dL (12.2-16.2); Lymphocytes # 0.7 K/mm3 (0.7-4.5); Lymphocytes % 17.6 % (10-50); Mean Corpuscular HGB Conc 31.6 g/dL (31.8-35.4); Mean Corpuscular Hemoglobin 30.6 pg (27.0-31.2); Mean Corpuscular Volume 96.9 fl (81-99); Mean Platelet Volume 8.9 fl (7.4-10.4); Monocytes # 0.2 K/mm3 (0.1-1.0); Monocytes % 5.7 % (1.7-9.3); Neutrophils # 2.8 K/mm3 (1.8-7.8); Platelet Count 110 K/mm3 (142-424); Red Cell Distribution Width 16.3 % (11.5-17.5); White Blood Count 3.8 K/mm3 (4.8-10.8)
[2024-02-13 09:13] LABS: Alanine Aminotransferase 29 U/L (12-78); Albumin Level 2.6 g/dl (3.5-5.0); Albumin/Globulin Ratio 0.7 (1.1-1.8); Alkaline Phosphatase 118 U/L (38-126); Anion Gap 10.3 mEq/L (5-15); Aspartate Amino Transferase 49 U/L (14-36); Bilirubin,Total 0.7 mg/dl (0.2-1.3); Blood Urea Nitrogen 30 mg/dl (7-17); Calcium 8.2 mg/dl (8.4-10.2); Carbon Dioxide 17 mmol/L (22.0-30.0); Chloride 116 mmol/L (98-107); Chol/HDL Ratio 2.1 (1-3.5); Cholesterol 66 mg/dl (140-200); Estimated Glomerular Filt Rate 41 ml/min (>60); GFR (African American) 49 ML/MIN (>60); Globulin 3.6 g/dL (1.3-3.2); Glucose 99 mg/dl (74-100); HDL Cholesterol 31 mg/dl (40-60); Potassium 4.3 mmoL/L (3.5-5.1); Sodium 139 mmol/L (136-145); Total Protein,Serum 6.2 g/dl (6.3-8.2); Triglycerides 69 mg/dl (30-150); VLDL Cholesterol 14 mg/dL (0-40)
[2024-02-13 10:14] LABS: Direct LDL Cholesterol < 30.00 mg/dL (100-129)
[2024-02-13 10:18] LABS: Vitamin B12 546 pg/mL (239-931)
[2024-02-13 10:32] LABS: Folate 7.39 ng/mL
[2024-02-13 11:58] LABS: Iron 75 ug/dL (37-170)
[2024-02-13 12:07] LABS: Total Iron Binding Capacity 302 ug/dL (265-497)
== END 2024-02-13 23:59 | disposition home or self-care (01) ==
LOC: LAB 07:50
PROVIDERS: PCP Student in an Organized Health Care Education/Training Program; Visit Provider Student in an Organized Health Care Education/Training Program
DX: D69.6 Thrombocytopenia, unspecified (principal); I10 Essential (primary) hypertension; E78.2 Mixed hyperlipidemia; D64.9 Anemia, unspecified; E78.5 Hyperlipidemia, unspecified; Z68.29 Body mass index [BMI] 29.0-29.9, adult; F17.210 Nicotine dependence, cigarettes, uncomplicated
CPT/HCPCS: 36415; 80053; 80061; 82607; 82728; 82746; 83540; 83550; 85025

== ENCOUNTER 2024-05-08 09:56 | Emergency (ER) | payer MEDICARE, MEDICAID, SELFPAY ==
[2024-05-08] VITALS (10 sets, daily range): BP systolic 112–141; BP diastolic 57–88; PULSE 66–83; RESP 20–22; TEMP 36.6–36.7; O2SAT 92–97; BMI 32.9
--- NOTE | 2024-05-08 10:16 | ECG_ITS ---
APPROVED REPORT Exam: Resting ECG HR:76 bpm ECG Measurements Heart Rate 76 AXES [place] 169 P 94 QRSd 145 QRS 84 QT 415 T 41 QTc 445 Conclusion SINUS RHYTHM WITH OCCASIONAL SUPRAVENTRICULAR PREMATURE COMPLEXES RIGHT BUNDLE BRANCH BLOCK [120+ ms QRS DURATION, UPRIGHT V1, 40+ ms S IN I/aVL/V4/V5/V6] No STEMI Electronically signed by : WILMER PABON, 05/08/2024 15:34:53
--- NOTE | 2024-05-08 10:30 | HMH.EDGENADL ---
Discharge Plan Prescriptions Prescriptions: No Action furosemide 40 mg tablet 40 mg PO DAILY spironolactone 100 mg tablet 100 mg PO DAILY bisoprolol fumarate 10 mg tablet 10 mg PO DAILY Qty: 30 5RF diphenhydramine HCl 25 mg capsule 25 mg PO HS Qty: 30 0RF cephalexin 500 mg capsule 500 mg PO QID 10 Days Qty: 40 0RF ergocalciferol (vitamin D2) 1,250 mcg (50,000 unit) capsule 1,250 mcg PO QWEEK Qty: 15 0RF aspirin 81 mg tablet,delayed release (DR/EC) 81 mg PO DAILY Qty: 90 1RF albuterol sulfate 90 mcg/actuation HFA aerosol inhaler See Rx Instructions .ROUTE .COMPLEX Qty: 8.5 0RF Dose Instruction: INHALE 2 PUFFS BY MOUTH EVERY 4 TO 6 HOURSAS NEEDED FOR SHORTNESS OF BREATH OR WHEEZING Rx Instructions: INHALE 2 PUFFS BY MOUTH EVERY 4 TO 6 HOURSAS NEEDED FOR SHORTNESS OF BREATH OR WHEEZING Trelegy Ellipta 100-62.5-25 mcg blister with device See Rx Instructions .ROUTE .COMPLEX Qty: 60 0RF Dose Instruction: INHALE 1 PUFF BY MOUTH ONCE A DAY Rx Instructions: INHALE 1 PUFF BY MOUTH ONCE A DAY atorvastatin 40 mg tablet 40 mg PO DAILY losartan-hydrochlorothiazide 100-25 mg tablet 1 tab PO DAILY ursodiol 300 mg capsule 300 mg PO DAILY escitalopram oxalate 10 mg tablet 10 mg PO DAILY Referrals Follow up/Referrals: Mariann Sunshine PA [Primary Care Provider] - See instructions Activity Restrictions/Add. Instructions Additional Instructions/Restrictions: You were evaluated in the ER and are appropriate for discharge at this time. Follow-up with your liver doctor tomorrow as scheduled and ask her about being scheduled for repeat paracentesis. Return to the ER with new, worsening, or otherwise concerning symptoms. Clinical Impressions Clinical Impression: Cirrhosis, Ascites Print Language Print Language: Tamazight Discharge ED Provider: Kevin Macias Adult HPI General Chief complaint: Shortness of Breath/Dyspnea Stated complaint: fluid on stomach Time Seen by Provider: 05/08/24 10:11 Mode of Arrival: Ambulatory Source of Information: Patient Limitations: No Limitations Description of Symptoms (Recalled from ER Triage Doc. by RN): shortness of breath,edema,cirrhosis History of Present Illness HPI narrative: 69-year-old female presents to the ER with concerns of abdominal swelling, swelling of the legs in the setting of cirrhosis which was diagnosed this summer. Patient states she follows with someone in [place] for her cirrhosis. She states she has been having progressive swelling and gradual worsening of shortness of breath. She states she is not having any nausea or vomiting but does have a mildly decreased appetite. Patient thought she was gaining weight just from being fat but was told by her doctor she saw today that it was swelling and to come to the ER for evaluation. Patient denies fevers, chills, abdominal pain, chest pain, dizziness, weakness, or any other associated symptoms. Patient reports she typically does take her fluid pill but did not take it today because of having to go to the doctor and not wanting to urinate all the time. Related Data Home Medications ?Medication ?Instructions ?Recorded ?Confirmed atorvastatin 40 mg tablet 40 mg PO DAILY 02/21/24 05/08/24 escitalopram oxalate 10 mg tablet 10 mg PO DAILY 02/21/24 05/08/24 losartan 100 1 tab PO DAILY 02/21/24 05/08/24 mg-hydrochlorothiazide 25 mg tablet ursodiol 300 mg capsule 300 mg PO DAILY 02/21/24 05/08/24 furosemide 40 mg tablet 40 mg PO DAILY 03/05/24 05/08/24 spironolactone 100 mg tablet 100 mg PO DAILY 03/05/24 05/08/24 Previous Rx's ?Medication ?Instructions ?Recorded diphenhydramine HCl 25 mg capsule 25 mg PO HS #30 caps 02/27/24 cephalexin 500 mg capsule 500 mg PO QID 10 days #40 caps 03/02/24 bisoprolol fumarate 10 mg tablet 10 mg PO DAILY #30 tabs 03/05/24 aspirin 81 mg tablet,delayed 81 mg PO DAILY #90 tabs 03/27/24 release ergocalciferol (vitamin D2) 1,250 1,250 mcg PO QWEEK #15 caps 03/27/24 mcg (50,000 unit) capsule albuterol sulfate 90 mcg/actuation See Rx Instructions .Route 04/24/24 aerosol inhaler .COMPLEX #8.5 grams fluticasone fur. 100 mcg-umeclid See Rx Instructions .Route 04/24/24 62.5 mcg-vilant 25 mcg .COMPLEX #60 blisters inhalat.powder (Trelegy Ellipta) Allergies Allergy/AdvReac Type Severity Reaction Status Date / Time lisinopril Allergy Mild Cough Verified 05/08/24 09:17 codeine (CODEINE) Allergy Unknown Verified 05/08/24 09:17 [facility] Disclaimer: The information contained in this section may have been updated after the patient was seen, as this information can be updated by other users. Medical History Dyspnea on exertion Encounter for screening for malignant neoplasm of lung Smoking greater than 30 pack years History of COPD Edema Carotid bruit Carotid Dopplers that were done on November 26, 2022 revealed less than 50% stenosis bilaterally. Will follow carefully. Cardiac murmur Patient is following with cardiology. Echocardiogram done October 2018 reveals a thickened and calcific aortic valve and mild MR and TR. I did hear a murmur today which was a systolic murmur which probably represents aortic regurg. Atrial fibrillation Patient is being followed by cardiology. Today she was regular rate and rhythm. Hypertension Leg pain Surgical History History of tonsillectomy History of cholecystectomy History of colonoscopy Family History Father Coronary artery disease Social History Smoking Status: Current every day smoker tobacco type: cigarettes packs per day: 1 alcohol intake: never substance use type: denies use current occupational status: retired and other Travel in the last 8 weeks: None household members: none housing: house Other Medical History Have you received the Flu Vaccine for this season: Yes Have you received the Pneumonia Vaccine: Yes ROS Obtained: Yes Systems reviewed as appropriate & no additional complaints except as documented ROS per HPI Physical Exam General General appearance: alert and in no apparent distress Head Head exam: atraumatic and normocephalic Eye Eye exam: Present PERRL and EOMI ENT ENT exam: Present mucous membranes moist Neck Neck exam: Present normal inspection and full ROM Chest Chest inspection: Present symmetric chest wall rise Respiratory Respiratory exam: Present normal lung sounds bilaterally; Absent respiratory distress, wheezes or stridor Cardiovascular Cardiovascular exam: Present regular rate and normal rhythm Abdominal Exam Abdominal exam: Present soft and distention (Distended, firm but not rigid, nonpainful); Absent tenderness, guarding or rebound Extremities Exam Extremities exam: Present full ROM and edema (+3 bilateral lower extremity pitting edema) Neurological Exam Neurological exam: Present alert and oriented X3; Absent motor sensory deficit Psychiatric Psychiatric exam: Present normal affect and normal mood Skin Skin exam: Present warm and dry Medical Decision Making Medical Records Screening: Per USPSTF and CDC recommendations, given the prevalence of disease in our region, it is our hospital?s policy to screen for HIV and viral Hepatitis for all patients aged 18 and over and those with ongoing risk factors. Alex Inquiry Pt receiving controlled substance: No Vital Signs: 05/08/24 09:58 05/08/24 10:15 05/08/24 10:31 Temperature 98.1 F Temperature Source Oral Pulse Rate 83 75 Pulse Rate [Right] 83 Respiratory Rate 22 Blood Pressure 128/66 Blood Pressure [Right Arm] 132/58 L Blood Pressure Mean [Right Arm] 82 02 Sat by Pulse Oximetry 97 95 95 Oxygen Delivery Method Room Air Room Air 05/08/24 11:01 05/08/24 11:31 05/08/24 12:00 Temperature Temperature Source Pulse Rate 76 73 66 Pulse Rate [Right] Respiratory Rate Blood Pressure 137/57 L 126/77 117/83 Blood Pressure [Right Arm] Blood Pressure Mean [Right Arm] 02 Sat by Pulse Oximetry 92 L 94 L 94 L Oxygen Delivery Method Room Air Room Air Room Air 05/08/24 13:01 05/08/24 13:31 05/08/24 14:01 Temperature Temperature Source Pulse Rate 68 74 68 Pulse Rate [Right] Respiratory Rate Blood Pressure 141/88 H 141/73 H 112/61 Blood Pressure [Right Arm] Blood Pressure Mean [Right Arm] 02 Sat by Pulse Oximetry 95 94 L 95 Oxygen Delivery Method Room Air Room Air Room Air Lab Data Lab Results 05/08/24 11:15: WBC 3.8 L, RBC 3.90 L, Hgb 11.9 L, Hct 36.2 L, MCV 93.0, MCH 30.7, MCHC 33.0, RDW 15.5, Plt Count 97 L, MPV 8.9, Neut % (Auto) 76.3, Lymph % (Auto) 15.5, [place] % (Auto) 6.4, Eos % (Auto) 1.0, Baso % (Auto) 0.7, Neut # (Auto) 2.9, Lymph # (Auto) 0.6 L, [place] # (Auto) 0.3, Eos # (Auto) 0.0, Baso # (Auto) 0.0, PT 15.5 H, INR 1.43 H, APTT 33.8 H, Sodium 140, Potassium 3.2 L, Chloride 106, Carbon Dioxide 29, Anion Gap 8.2, BUN 23 H, Creatinine 1.30 H, Estimated Creat Clear 65, Estimated GFR 41 L, Est GFR ( Amer) 49 L, Glucose 86, Calcium 8.0 L, Total Bilirubin 1.2, AST 54 H, ALT 26, Alkaline Phosphatase 143 H, NT-Pro-B Natriuret Pep 141 H, Total Protein 6.5, Albumin 2.8 L, Globulin 3.7 H, Albumin/Globulin Ratio 0.8 L, HIV 1&2 Antibody Rapid Nonreactive 05/08/24 13:15: Fluid Source Paracentesis fluid, Fluid Volume 3000, Fluid Appearance Normal, Fluid RBC (Auto) < 10, Fld Tot Nucleated Cell 151 05/08/24 11:15 05/08/24 11:15 Orders (Tests/Meds): ED MEDICATIONS Discontinued Medications Generic Name Dose Route Start Last Admin Trade Name Freq PRN Reason Stop Dose Admin Potassium Chloride 40 meq 05/08/24 12:56 05/08/24 13:10 Potassium Chloride 20meq Tab PO 05/08/24 12:57 40 meq ONCE ONE Administration ORDERS Category Date Time Status BNP [NT Pro Brain Natriuretic Pep.] Stat Lab 05/08/24 11:15 Completed Body Fluid: Cell Count w/ Diff Stat Lab 05/08/24 13:15 Results CBC w/Auto Diff [Complete Blood Count Auto Diff] Stat Lab 05/08/24 11:15 Completed CMP [Comprehensive Metabolic Panel] Stat Lab 05/08/24 11:15 Completed HIV (1&2) Antibody Rapid Stat Lab 05/08/24 11:15 Completed Hep C Ab with Reflex to RNA Stat Lab 05/08/24 11:15 Received PT INR [Prothrombin Time INR] Stat Lab 05/08/24 11:15 Completed PTT [Activated Partial Thrombo Time] Stat Lab 05/08/24 11:15 Completed Body Fluid Cult & Gram Stain Stat Micro 05/08/24 13:15 Received Medical Decision Narrative: In summary, this 69-year-old female with known cirrhosis presents to the emergency department today with abdominal distention and progressive dyspnea on exertion. On initial evaluation patient is hemodynamically stable, afebrile, no chest pain or shortness of breath, she does have pitting edema and an obviously distended abdomen with fluid wave concerning for ascites. Differential diagnosis includes but is not limited to ascites, I considered SBP, fluid overload since patient is not fully compliant with her diuretic, I do not have suspicion for cardiac etiology since patient has had no chest pain and this has been a gradual progression associated with her swelling of the abdomen. Based on these concerns, I ordered serum labs. ECG personally interpreted demonstrates sinus rhythm, rate 76, occasional PAC, normal NV and QTc, right bundle branch block, no STEMI. Labs personally reviewed demonstrate leukopenia and anemia similar to prior labs which I reviewed, PT/INR and APTT elevated consistent with her known liver dysfunction, she does have thrombocytopenia with platelets 97 slightly worse than previous, hypokalemia for which patient is receiving oral repletion, kidney dysfunction stable from prior, liver dysfunction also similar to prior based on transaminases, BNP only mildly elevated at 141. Patient was consented for paracentesis which was performed. 3.5 L of ascites fluid removed. Labs were sent on the fluid to evaluate for SBP. These were reviewed and demonstrate total nucleated cell count 151, well below threshold for SBP. Patient does not require admission. I instructed her to take her diuretic as directed and follow-up with her liver team tomorrow as scheduled. Patient was given instructions on symptomatic management, follow up instructions, and return precautions for the emergency department. Patient indicated understanding and was discharged in stable condition. Procedures Risk/Benefits of Procedure(s) Were Explained: Yes Paracentesis Time Out Performed: Yes Local Anesthetic: lidocaine 1% Amount of anesthesia used (mL): 5 Fluid: clear (Monae) Post Procedure Exam: awake, alert, normal BP and normal HR Patient Tolerated Procedure: well and no complications Complications: none Critical Care Critical Care Time Critical Care Time: No
[2024-05-08 11:29] LABS: Basophils % 0.7 % (0.1-2.0); Hematocrit 36.2 % (37.0-47.0); Hemoglobin 11.9 g/dL (12.2-16.2); Lymphocytes # 0.6 K/mm3 (0.7-4.5); Lymphocytes % 15.5 % (10-50); Mean Corpuscular Hemoglobin 30.7 pg (27.0-31.2); Mean Platelet Volume 8.9 fl (7.4-10.4); Monocytes # 0.3 K/mm3 (0.1-1.0); Monocytes % 6.4 % (1.7-9.3); Neutrophils # 2.9 K/mm3 (1.8-7.8); Neutrophils % 76.3 % (37.0-80.0); Platelet Count 97 K/mm3 (142-424); Red Cell Distribution Width 15.5 % (11.5-17.5); White Blood Count 3.8 K/mm3 (4.8-10.8)
[2024-05-08 11:33] LABS: Alanine Aminotransferase 26 U/L (12-78); Albumin Level 2.8 g/dl (3.5-5.0); Albumin/Globulin Ratio 0.8 (1.1-1.8); Alkaline Phosphatase 143 U/L (38-126); Anion Gap 8.2 mEq/L (5-15); Aspartate Amino Transferase 54 U/L (14-36); Bilirubin,Total 1.2 mg/dl (0.2-1.3); Blood Urea Nitrogen 23 mg/dl (7-17); Carbon Dioxide 29 mmol/L (22.0-30.0); Chloride 106 mmol/L (98-107); Creatinine Clearance Estimated 65 mL/min (50-200); Estimated Glomerular Filt Rate 41 ml/min (>60); GFR (African American) 49 ML/MIN (>60); Globulin 3.7 g/dL (1.3-3.2); Glucose 86 mg/dl (74-100); Potassium 3.2 mmoL/L (3.5-5.1); Sodium 140 mmol/L (136-145); Total Protein,Serum 6.5 g/dl (6.3-8.2)
[2024-05-08 11:38] LABS: Activated Partial Thrombo Time 33.8 seconds (22.8-30.6); INR 1.43 (0.9-1.1); Prothrombin Time 15.5 seconds (10.1-12.5)
[2024-05-08 11:42] LABS: NT Pro Brain Natriuretic Pep. 141 pg/mL (0-125)
--- NOTE | 2024-05-08 12:20 | PC.NURSE ---
AT FOR PROCEDURE
[2024-05-08 12:59] LABS: HIV (1&2) Antibody Rapid NONREACTIVE (NONREACTIVE)
[2024-05-08] MEDS: POTASSIUM CHLORIDE 20MEQ TAB 40 MEQ PO (13:10)
[2024-05-08 14:18] LABS: Appearance,Body Fld. Normal; Volume,Body Fld. 3000 mL
[2024-05-08 14:36] LABS: Source, Body Fld. Paracentesis Fluid
[2024-05-08 14:37] LABS: RBC,Body Fluid < 10 cells/uL (< 10 X 10^3); TNC,Body Fluid 151 cells/uL (< 1000)
[2024-05-08 15:30] LABS: Mononuclear WBCs,Body Fluid 78 %; Polynuclear WBC,Body Fluid 22 %
[2024-05-09 10:31] LABS: HCV Ab Non Reactive (Non Reactive)
== END 2024-05-08 14:57 | disposition home or self-care (01) ==
PROVIDERS: Emergency Provider Emergency Medicine; PCP Student in an Organized Health Care Education/Training Program
DX: R18.8 Other ascites (principal); K74.60 Unspecified cirrhosis of liver; R06.02 Shortness of breath; R63.8 Other symptoms and signs concerning food and fluid intake
CPT/HCPCS: 80053; 83880; 85025; 85610; 85730; 86803; 87070; 87205; 87389; 89051; 93005; 99284

== ENCOUNTER 2024-05-23 04:20 | Emergency (ER) | payer MEDICARE, MEDICAID, SELFPAY ==
--- NOTE | 2024-05-23 04:09 | ECG_ITS ---
APPROVED REPORT Exam: Resting ECG HR:84 bpm ECG Measurements Heart Rate 84 AXES ND 186 P 93 QRSd 137 QRS 92 QT 405 T 66 QTc 446 Conclusion SINUS RHYTHM WITH OCCASIONAL VENTRICULAR PREMATURE COMPLEXES RIGHT BUNDLE BRANCH BLOCK [120+ ms QRS DURATION, UPRIGHT V1, 40+ ms S IN I/aVL/V4/V5/V6] ABNORMAL ECG No STEMI Electronically signed by : WILMER PABON, 05/23/2024 07:04:18
--- NOTE | 2024-05-23 04:12 | PC.NURSE ---
contacted pt about [facility], expecting a call back at this time.
[2024-05-23 04:19] VITALS: BMI 31.7
--- NOTE | 2024-05-23 04:20 | PC.NURSE ---
speaking with at this time
[2024-05-23 04:22] VITALS: BP 78/34; PULSE 85; RESP 20; TEMP 36.7; O2SAT 95
--- NOTE | 2024-05-23 04:28 | XR_ITS ---
PROCEDURE INFORMATION: Exam: XR Chest Exam date and time: 05/23/2024 4:25 AM Age: 69 years old Clinical indication: Injury or trauma; Fall TECHNIQUE: Imaging protocol: Radiologic exam of the chest. Views: 1 view. 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 Atelectasis and or fibrosis at the lung bases, left greater than right. No consolidation. Pleural spaces: No significant pleural effusions. No pneumothorax. Heart/Mediastinum: Cardiac size is normal and mediastinal contour stable. Bones/joints: No acute bony abnormalities. IMPRESSION: COPD with atelectasis/fibrosis. No acute posttraumatic findings.
--- NOTE | 2024-05-23 04:29 | XR_ITS ---
PROCEDURE INFORMATION: Exam: XR Pelvis Exam date and time: 05/23/2024 4:25 AM Age: 69 years old Clinical indication: Injury or trauma; Fall TECHNIQUE: Imaging protocol: Radiologic exam of the pelvis. Views: 1 or 2 view. COMPARISON: CT ABDOMEN WO CON 01/24/2023 8:26 AM FINDINGS: Bones/joints: No acute fracture or dislocation. Moderate to severe degenerative change of the right hip and mild degenerative change of the left hip. Degenerative change within the lower lumbar spine. Soft tissues: Unremarkable. Vasculature: Atherosclerotic vascular calcification. IMPRESSION: No acute fracture or dislocation.
--- NOTE | 2024-05-23 04:31 | PC.NURSE ---
Attempted to contact pt family, unable to reach them after 2 tries.
[2024-05-23 04:38] LABS: Basophils % 0.2 % (0.1-2.0); Hematocrit 36.3 % (37.0-47.0); Hemoglobin 12.1 g/dL (12.2-16.2); Lymphocytes # 0.4 K/mm3 (0.7-4.5); Lymphocytes % 2.8 % (10-50); Mean Corpuscular HGB Conc 33.4 g/dL (31.8-35.4); Mean Corpuscular Hemoglobin 30.1 pg (27.0-31.2); Monocytes # 0.9 K/mm3 (0.1-1.0); Monocytes % 6.2 % (1.7-9.3); Neutrophils # 13.4 K/mm3 (1.8-7.8); Neutrophils % 90.7 % (37.0-80.0); Platelet Count 152 K/mm3 (142-424); Red Blood Count 4.03 M/mm3 (4.20-5.40); Red Cell Distribution Width 15.7 % (11.5-17.5); White Blood Count 14.7 K/mm3 (4.8-10.8)
[2024-05-23 04:40] LABS: MANUAL DIFFERENTIAL MANUAL DIFFERENTIAL (MANUAL DIFF)
[2024-05-23 04:43] LABS: Albumin Level 2.2 g/dl (3.5-5.0); Chloride 101 mmol/L (98-107); Sodium 130 mmol/L (136-145)
[2024-05-23 04:44] LABS: Potassium 3.1 mmoL/L (3.5-5.1)
[2024-05-23 04:46] LABS: Alanine Aminotransferase 28 U/L (12-78); Albumin/Globulin Ratio 0.7 (1.1-1.8); Alkaline Phosphatase 109 U/L (38-126); Anion Gap 15.1 mEq/L (5-15); Aspartate Amino Transferase 52 U/L (14-36); Bilirubin,Total 1.6 mg/dl (0.2-1.3); Blood Urea Nitrogen 21 mg/dl (7-17); Calcium 7.4 mg/dl (8.4-10.2); Carbon Dioxide 17 mmol/L (22.0-30.0); Creatinine Clearance Estimated 36 mL/min (50-200); Estimated Glomerular Filt Rate 21 ml/min (>60); GFR (African American) 25 ML/MIN (>60); Globulin 3.2 g/dL (1.3-3.2); Glucose 112 mg/dl (74-100); Total Protein,Serum 5.4 g/dl (6.3-8.2)
[2024-05-23 04:47] LABS: Activated Partial Thrombo Time 39.5 seconds (22.8-30.6); INR 1.89 (0.9-1.1); Lipase 85 U/L (23-300); Prothrombin Time 19.9 seconds (10.1-12.5)
--- NOTE | 2024-05-23 04:47 | HMH.EDGENADL ---
Discharge Plan Disposition Patient Disposition: Xfer Short-Term Hosp Prescriptions Prescriptions: No Action furosemide 40 mg tablet 40 mg PO DAILY spironolactone 100 mg tablet 100 mg PO DAILY bisoprolol fumarate 10 mg tablet 10 mg PO DAILY Qty: 30 5RF escitalopram oxalate 10 mg tablet 10 mg PO DAILY Qty: 90 1RF diphenhydramine HCl 25 mg capsule 25 mg PO HS Qty: 30 0RF cephalexin 500 mg capsule 500 mg PO QID 10 Days Qty: 40 0RF ergocalciferol (vitamin D2) 1,250 mcg (50,000 unit) capsule 1,250 mcg PO QWEEK Qty: 15 0RF aspirin 81 mg tablet,delayed release (DR/EC) 81 mg PO DAILY Qty: 90 1RF albuterol sulfate 90 mcg/actuation HFA aerosol inhaler See Rx Instructions .ROUTE .COMPLEX Qty: 8.5 0RF Dose Instruction: INHALE 2 PUFFS BY MOUTH EVERY 4 TO 6 HOURSAS NEEDED FOR SHORTNESS OF BREATH OR WHEEZING Rx Instructions: INHALE 2 PUFFS BY MOUTH EVERY 4 TO 6 HOURSAS NEEDED FOR SHORTNESS OF BREATH OR WHEEZING Trelegy Ellipta 100-62.5-25 mcg blister with device See Rx Instructions .ROUTE .COMPLEX Qty: 60 0RF Dose Instruction: INHALE 1 PUFF BY MOUTH ONCE A DAY Rx Instructions: INHALE 1 PUFF BY MOUTH ONCE A DAY atorvastatin 40 mg tablet 40 mg PO DAILY losartan-hydrochlorothiazide 100-25 mg tablet 1 tab PO DAILY ursodiol 300 mg capsule 300 mg PO DAILY Clinical Impressions Clinical Impression: Fall, Face lacerations, Hypotension Stand Alone Forms Stand Alone Forms: Transfer Record - ED Print Language Print Language: Greenlandic Discharge ED Provider: Kevin Macias General Adult HPI General Chief complaint: Fall Stated complaint: fall Time Seen by Provider: 05/23/24 04:20 Mode of Arrival: EMS Description of Symptoms (Recalled from ER Triage Doc. by RN): Pt to ED via EMS w c/o fall, hitting head. Pt is not on blood thinners, and denies LOC. GSC is 15. PERRLA 3mm, FSBS 119, C Collar applied. Laceration noted over left eye, skin tear to left fore arm and right wrist. Eyes and skin are jaundiced, and abdomen is distended. pt reports hx of liver disease. History of Present Illness HPI narrative: Jacqueline Pittman is a 69-year-old female with known liver disease who presented to the ER for concerns of fall.? Patient states for the last few days she has been sick with mild cough and congestion. She states she has also been mildly lightheaded.? She got up to use the restroom when she felt dizzy and fell.? She struck her head but denies losing consciousness.? She takes daily aspirin.? Patient states she sees a doctor in [place] for her liver pathology.? Patient reports mild nausea and vomiting as well as cough but no known fevers.? She denies hematuria or dysuria.? She denies headache, numbness, tingling, weakness, chest pain, shortness of breath, abdominal pain, back pain, neck pain, or pain in any of the extremities. She has no numbness, tingling, or weakness. EMS reports patient was hypotensive in route, patient reports her normal blood pressures are in the 120s. EMS also reports she was mildly hypoxic and they started her on nasal cannula, she does not wear nasal cannula at baseline. She does have a history of COPD Related Data Home Medications ?Medication ?Instructions ?Recorded ?Confirmed atorvastatin 40 mg tablet 40 mg PO DAILY 02/21/24 05/16/24 losartan 100 1 tab PO DAILY 02/21/24 05/16/24 mg-hydrochlorothiazide 25 mg tablet ursodiol 300 mg capsule 300 mg PO DAILY 02/21/24 05/16/24 furosemide 40 mg tablet 40 mg PO DAILY 03/05/24 05/16/24 spironolactone 100 mg tablet 100 mg PO DAILY 03/05/24 05/16/24 Previous Rx's ?Medication ?Instructions ?Recorded diphenhydramine HCl 25 mg capsule 25 mg PO HS #30 caps 02/27/24 cephalexin 500 mg capsule 500 mg PO QID 10 days #40 caps 03/02/24 bisoprolol fumarate 10 mg tablet 10 mg PO DAILY #30 tabs 03/05/24 aspirin 81 mg tablet,delayed 81 mg PO DAILY #90 tabs 03/27/24 release ergocalciferol (vitamin D2) 1,250 1,250 mcg PO QWEEK #15 caps 03/27/24 mcg (50,000 unit) capsule albuterol sulfate 90 mcg/actuation See Rx Instructions .Route 11/05/24 aerosol inhaler .COMPLEX #8.5 grams fluticasone fur. 100 mcg-umeclid See Rx Instructions .Route 04/24/24 62.5 mcg-vilant 25 mcg .COMPLEX #60 blisters inhalat.powder (Trelegy Ellipta) escitalopram oxalate 10 mg tablet 10 mg PO DAILY #90 tabs 05/16/24 Allergies Allergy/AdvReac Type Severity Reaction Status Date / Time lisinopril Allergy Mild Cough Verified 05/08/24 09:17 codeine (CODEINE) Allergy Unknown Verified 05/08/24 09:17 [facility] Disclaimer: The information contained in this section may have been updated after the patient was seen, as this information can be updated by other users. Medical History Dyspnea on exertion Encounter for screening for malignant neoplasm of lung Smoking greater than 30 pack years History of COPD Edema Carotid bruit Carotid Dopplers that were done on November 26, 2022 revealed less than 50% stenosis bilaterally. Will follow carefully. Cardiac murmur Patient is following with cardiology. Echocardiogram done October 2018 reveals a thickened and calcific aortic valve and mild MR and TR. I did hear a murmur today which was a systolic murmur which probably represents aortic regurg. Atrial fibrillation Patient is being followed by cardiology. Today she was regular rate and rhythm. Hypertension Leg pain Surgical History History of tonsillectomy History of cholecystectomy History of colonoscopy Family History Father Coronary artery disease Social History Smoking Status: Unknown if ever smoked alcohol intake: never substance use type: denies use current occupational status: retired and other Travel in the last 8 weeks: None household members: none housing: house Other Medical History Have you received the Flu Vaccine for this season: Yes Have you received the Pneumonia Vaccine: Yes ROS Obtained: Yes Systems reviewed as appropriate & no additional complaints except as documented Per HPI Physical Exam General General appearance: alert and in no apparent distress Comment: chronically ill appearing Head Head exam: normocephalic and other (2 cm laceration above left eyebrow, slow venous oozing, associated ecchymosis but no deformity) Eye Eye exam: Present PERRL (Pupils 3 mm, reactive bilaterally), EOMI and jaundice ENT ENT exam: Present mucous membranes moist Neck Neck exam: Present normal inspection and other (Cervical collar applied); Absent tenderness Chest Chest inspection: Present symmetric chest wall rise Respiratory Respiratory exam: Present normal lung sounds bilaterally (Bilateral breath sounds present, on 2 L nasal cannula); Absent respiratory distress, wheezes or stridor Cardiovascular Cardiovascular exam: Present regular rate and normal rhythm Abdominal Exam Abdominal exam: Present soft and distention; Absent tenderness, guarding, rebound or rigidity Extremities Exam Extremities exam: Present full ROM, edema (Peripheral edema present) and other (Skin tears on bilateral distal upper extremities, slow venous oozing, ecchymosis present without deformity, step-off, neurovascularly intact); Absent tenderness (No deformities or tenderness) or joint swelling Back Exam Back exam: Absent tenderness (No step-off or deformity) or vertebral tenderness Neurological Exam Neurological exam: Present alert and oriented X3; Absent motor sensory deficit Psychiatric Psychiatric exam: Present normal affect and normal mood Skin Skin exam: Present warm, dry and other (Capillary refill less than 2 seconds) Medical Decision Making Medical Records Medical records reviewed: Yes I reviewed the patient's medical records. Screening: Per USPSTF and CDC recommendations, given the prevalence of disease in our region, it is our hospital?s policy to screen for HIV and viral Hepatitis for all patients aged 18 and over and those with ongoing risk factors. MR Comment: Reviewed patient's previous labs from April ER visit. Alex Inquiry Pt receiving controlled substance: No Vital Signs: 05/23/24 04:22 Temperature 98.1 F Temperature Source Oral Pulse Rate [Right Radial] 85 Respiratory Rate 20 Blood Pressure [Left Arm] 78/34 L Blood Pressure Mean [Left Arm] 48 Blood Pressure Source [Left Arm] Manual Cuff/ Auscultation Blood Pressure Position [Left Arm] Sitting 02 Sat by Pulse Oximetry 95 Oxygen Delivery Method Room Air Lab Data Lab Results 05/23/24 04:25: WBC 14.7 H, RBC 4.03 L, Hgb 12.1 L, Hct 36.3 L, MCV 90.0, MCH 30.1, MCHC 33.4, RDW 15.7, Plt Count 152, MPV 9.0, Neut % (Auto) 90.7 H, Lymph % (Auto) 2.8 L, Mcmullen % (Auto) 6.2, Eos % (Auto) 0.0 L, Baso % (Auto) 0.2, Neut # (Auto) 13.4 H, Lymph # (Auto) 0.4 L, Mcmullen # (Auto) 0.9, Eos # (Auto) 0.0, Baso # (Auto) 0.0, Sodium 130 L, Potassium 3.1 L, Chloride 101, Carbon Dioxide 17 L, Anion Gap 15.1 H, BUN 21 H, Creatinine 2.30 H, Estimated Creat Clear 36, Estimated GFR 21 L, Est GFR ( Amer) 25 L, Glucose 112 H, Calcium 7.4 L, Total Bilirubin 1.6 H, AST 52 H, ALT 28, Alkaline Phosphatase 109, Total Protein 5.4 L, Albumin 2.2 L, Globulin 3.2, Albumin/Globulin Ratio 0.7 L, Lipase 85, Plasma/Serum Alcohol < 10 05/23/24 04:25 05/23/24 04:25 Orders (Tests/Meds): ORDERS Category Date Time Status Chest XR -- portable [XR chest portable] Stat Exams 05/23/24 04:28 Taken Pelvis XR 1-2 views [XR pelvis 1-2V] Stat Exams 05/23/24 04:29 Taken Complete Blood Count Auto Diff Stat Lab 05/23/24 04:25 Results Comprehensive Metabolic Panel Stat Lab 05/23/24 04:25 Received Drug Screen,Urine Stat Lab 05/23/24 04:21 Ordered Ethyl Alcohol Stat Lab 05/23/24 04:25 Received Lipase Stat Lab 05/23/24 04:25 Received PT/PTT Stat Lab 05/23/24 04:25 Received Prothrombin Time INR Stat Lab 05/23/24 04:25 Received Medical Decision Narrative: In summary, this 69-year-old female with comorbidities as described in HPI presents to the emergency department today with fall, reports of hypotension from EMS, recent illness. On arrival to the ER patient's airway was intact, bilateral breath sounds present, 1+ left radial pulse palpable, GCS 15 no focal neurologic deficits appreciated.. Initial blood pressure in the ER was 199, repeat blood pressure was in the 80s. With hypotension patient was made a trauma alert. E-FAST personally performed and interpreted was positive. See procedure note. I have suspicion that her positive E-FAST is secondary to ascites given her history of liver disease however I cannot specifically rule this in or out. Patient euglycemic on arrival. 1 L of IV fluids initiated. Differential diagnosis includes but is not limited to intracranial bleed, fracture, dislocation, pneumothorax, hemothorax, pelvic fracture, intrathoracic or intra-abdominal bleed, among other traumatic injuries. C-collar applied on arrival in the ER. Patient requires transfer to higher level of care for a trauma center due to her hypotension in the setting of trauma. She is responding somewhat to fluids. I contacted and I am awaiting a callback. Based on the above concerns, I ordered basic serum labs, chest x-ray, pelvic x-ray. ECG personally interpreted demonstrates sinus rhythm, rate 84, normal [place] and QTc, no STEMI. Patient does have occasional PVCs. transfer center called back, I spoke with Dr. Florez at transfer center, after discussing the case with her, she graciously accepted the patient for ED to ED transfer to [facility]. She recommends not giving additional IV fluids at this time since they will just third space. She recommended 1 g/kg albumin bolus, 62.5 g of IV albumin was available in the ER and she received this amount. Her blood pressure has improved. Prior to transfer her blood pressure was 91/48. Clinically she is tolerating her blood pressure very well being fully oriented, warm, well-perfused. Chest x-ray personally interpreted demonstrates findings of pulmonary edema but no traumatic injuries, I do not appreciate traumatic findings on my personal interpretation of pelvic x-ray. See radiology reads for final interpretations. Lab results I had prior to patient departing the ER with a CBC which demonstrated leukocytosis WBC 14.7 with neutrophilia as well as mild anemia with hemoglobin 12.1, normal platelets. I considered blood transfusion because of patient's hypotension however with her hemoglobin 12.1 and known history of cirrhosis with obvious third spacing on clinical exam given her peripheral edema, I did not want to continue potentially fluid overloading her. Patient is agreeable to transfer, she was transferred by [facility] ambulance for continued cardiac and hemodynamic monitoring as well as to receive IV fluids if needed. Patient transferred in serious but improved condition. Labs resulted after patient's departure from the ER include PT/INR which are elevated more significantly than they were on May 08, the last time she was in the ER. APTT is also more elevated now at 39.5, previously 33.8. These indicate further worsening of her liver disease. CMP with hyponatremia and hypokalemia, worsening kidney function, hyperbilirubinemia which is new, and worsening hypoalbuminemia. Patient's hypoalbuminemia is being treated with IV albumin. Lipase normal. After patient department from the ER, I called transfer center back and updated Dr. Burger about the lab results that we have as well as the amount of albumin she received. Procedures Miscellaneous Procedure Procedure Performed: Indication: Blunt trauma Views: [LUQ/RUQ/pelvis/limited cardiac/limited thoracic] Interpretation: Peritoneal free fluid: Present Pericardial effusion: Trace present Right thoracic free fluid: Not appreciated Left thoracic free fluid: Not appreciated Right lung pneumothorax: Absent Left lung pneumothorax: Absent Impression: Positive EFAST ultrasound Images were saved in the permanent archive. The study was technically adequate. CPT 42337-11 (limited cardiac) 05234?26 (limited abdominal) 37864?26 (chest) This study was performed by me, and I personally interpreted all images/videos. Based on my clinical judgment, these images were adequate and did not necessitate further imaging. Critical Care Critical Care Time Critical Care Time: Yes Attestation: On 05/23/24, the high probability of a clinically significant, sudden or life threatening deterioration of the following system(s) (neurologic, hemodynamic) required my full and direct attention, intervention and personal management. The time I documented below is in addition to time spent performing reported procedures but includes the following listed in this critical care notation. Total Time Total Critical Care Time: 35
[2024-05-23 04:48] LABS: Ethyl Alcohol < 10 mg/dl (0-10)
[2024-05-23 05:01] LABS: Lymphocytes % 6 % (10-50); Neutrophils % 93 % (42-76); Total Cells Counted 100
[2024-05-23 05:02] LABS: Anisocytosis 1+; Ovalocytes 1+; RBC Morphology Normal
--- NOTE | 2024-05-23 05:07 | PC.NURSE ---
report given to cesar GERONIMO @ [facility]
[2024-05-23 05:09] VITALS: BP 84/44; PULSE 78; RESP 20; TEMP 36.7; O2SAT 95
== END 2024-05-23 05:08 | disposition short-term general hospital (02) ==
PROVIDERS: Emergency Provider Emergency Medicine
DX: I95.9 Hypotension, unspecified (principal); S01.81XA Laceration without foreign body of other part of head, initial encounter; R42 Dizziness and giddiness; R05.9 Cough, unspecified; R09.81 Nasal congestion; R14.0 Abdominal distension (gaseous); R17 Unspecified jaundice; W18.39XA Other fall on same level, initial encounter; Y93.89 Activity, other specified; Y92.009 Unspecified place in unspecified non-institutional (private) residence as the place of occurrence of the external cause
CPT/HCPCS: 71045; 72170; 80053; 80320; 83690; 85007; 85025; 85027; 85610; 85730; 86850; 93005; 99291; G0480

== ENCOUNTER 2024-07-07 16:30 | Emergency (ER) | payer MEDICARE, MEDICAID, SELFPAY ==
[2024-07-07] VITALS (9 sets, daily range): BP systolic 103–133; BP diastolic 57–74; PULSE 76–87; RESP 16–20; TEMP 36.6; O2SAT 93–96; BMI 32.5
--- NOTE | 2024-07-07 16:42 | XR_ITS ---
PROCEDURE INFORMATION: Exam: XR Chest Exam date and time: 07/07/2024 4:58 PM Clinical indication: Shortness of breath; Additional info: Ascites TECHNIQUE: Imaging protocol: Radiologic exam of the chest. Views: 1 view. COMPARISON: No relevant prior studies available. FINDINGS: Lungs: See Pleural spaces finding. Pleural spaces: Small layering left pleural effusion with bibasilar atelectasis. Heart/Mediastinum: Unremarkable. No cardiomegaly. Bones/joints: Unremarkable. IMPRESSION: Small layering left pleural effusion with bibasilar atelectasis. No definite infiltrates.
--- NOTE | 2024-07-07 16:47 | ED_ITS ---
<Statement entered by Judi Delaney MD - 07/07/24 19:40> I was consulted by the KELLY, and we discussed the complexity of problems being addressed. I approved the treatment and management plan for this patient's care in the emergency department, thus performing a substantive portion of the medical decision making. Paracentesis was performed by me at bedside with ultrasound guidance for verification of adequate pocket size. Patient's paracentesis labs did not demonstrate SBP, therefore patient was able to be discharged and did not require antibiotic treatment. Patient was encouraged to continue taking her diuretics and to follow-up with her liver specialist in [place], [place]. Judi Delaney MD Discharge Plan Disposition Patient Disposition: Home, Self-Care Condition: Good Chief Complaint: Weakness Prescriptions Prescriptions: No Action furosemide 40 mg tablet 40 mg PO DAILY spironolactone 100 mg tablet 100 mg PO DAILY bisoprolol fumarate 10 mg tablet 10 mg PO DAILY Qty: 30 5RF escitalopram oxalate 10 mg tablet 10 mg PO DAILY Qty: 90 1RF diphenhydramine HCl 25 mg capsule 25 mg PO HS Qty: 30 0RF cephalexin 500 mg capsule 500 mg PO QID 10 Days Qty: 40 0RF ergocalciferol (vitamin D2) 1,250 mcg (50,000 unit) capsule 1,250 mcg PO QWEEK Qty: 15 0RF aspirin 81 mg tablet,delayed release (DR/EC) 81 mg PO DAILY Qty: 90 1RF albuterol sulfate 90 mcg/actuation HFA aerosol inhaler See Rx Instructions .ROUTE .COMPLEX Qty: 8.5 0RF Dose Instruction: INHALE 2 PUFFS BY MOUTH EVERY 4 TO 6 HOURS NEEDED FOR SHORTNESS OF BREATH OR WHEEZING Rx Instructions: INHALE 2 PUFFS BY MOUTH EVERY 4 TO 6 HOURS NEEDED FOR SHORTNESS OF BREATH OR WHEEZING Trelegy Ellipta 100-62.5-25 mcg blister with device See Rx Instructions .ROUTE .COMPLEX Qty: 60 0RF Dose Instruction: INHALE 1 PUFF BY MOUTH ONCE A DAY Rx Instructions: INHALE 1 PUFF BY MOUTH ONCE A DAY atorvastatin 40 mg tablet See Rx Instructions .ROUTE .COMPLEX Qty: 30 0RF Dose Instruction: TAKE ONE TABLET BY MOUTH ONCE A DAY Rx Instructions: TAKE ONE TABLET BY MOUTH ONCE A DAY losartan-hydrochlorothiazide 100-25 mg tablet 1 tab PO DAILY ursodiol 300 mg capsule 300 mg PO DAILY Referrals Follow up/Referrals: Provider,Referral, [Primary Care Provider] - See instructions Activity Restrictions/Add. Instructions Additional Instructions/Restrictions: Follow-up with PCP this week Call for follow-up appointment with GI Monitor for fever If symptoms worsen or do not improve return Clinical Impressions Clinical Impression: Cirrhosis Qualifiers: Hepatic cirrhosis type: other cirrhosis Qualified Code(s): K74.69 - Other cirrhosis of liver Ascites Qualifiers: Ascites type: other type Qualified Code(s): R18.8 - Other ascites Instructions Patient Instructions: DI for Abdominal Paracentesis, DI for Ascites Print Language Print Language: Senegalese Discharge ED Provider: Judi Delaney General Adult HPI General Chief complaint: Weakness Stated complaint: fluid build up in stomach/weakness Time Seen by Provider: 07/07/24 16:33 Mode of Arrival: EMS Source of Information: Patient Limitations: No Limitations Description of Symptoms (Recalled from ER Triage Doc. by RN): pt presents to ED with c/o increasing weakness and icnreased abdominal swelling ongoing for the past week. pt was in hospital approx 1 month ago and had paracentesis then with success. History of Present Illness HPI narrative: 69-year-old female presents to the ER with complaints of increased weakness and abdominal swelling for over a week. Patient states she thinks she needs her stomach drained again. Patient was inpatient at [facility] about a month ago due to a fall and had a paracentesis done there. Patient states she had her first paracentesis done at [facility] about a month prior to them when she had at . Patient states she has cirrhosis of the liver with portal hypertension. Patient denies drinking alcohol. Related Data Home Medications ?Medication ?Instructions ?Recorded ?Confirmed losartan 100 1 tab PO DAILY 02/21/24 05/16/24 mg-hydrochlorothiazide 25 mg tablet ursodiol 300 mg capsule 300 mg PO DAILY 02/21/24 05/16/24 furosemide 40 mg tablet 40 mg PO DAILY 03/05/24 05/16/24 spironolactone 100 mg tablet 100 mg PO DAILY 03/05/24 05/16/24 Previous Rx's ?Medication ?Instructions ?Recorded diphenhydramine HCl 25 mg capsule 25 mg PO HS #30 caps 02/27/24 cephalexin 500 mg capsule 500 mg PO QID 10 days #40 caps 03/02/24 bisoprolol fumarate 10 mg tablet 10 mg PO DAILY #30 tabs 03/05/24 aspirin 81 mg tablet,delayed 81 mg PO DAILY #90 tabs 03/27/24 release ergocalciferol (vitamin D2) 1,250 1,250 mcg PO QWEEK #15 caps 03/27/24 mcg (50,000 unit) capsule escitalopram oxalate 10 mg tablet 10 mg PO DAILY #90 tabs 05/16/24 albuterol sulfate 90 mcg/actuation See Rx Instructions .Route 05/28/24 aerosol inhaler .COMPLEX #8.5 grams atorvastatin 40 mg tablet See Rx Instructions .Route 05/28/24 .COMPLEX #30 tabs fluticasone fur. 100 mcg-umeclid See Rx Instructions .Route 05/28/24 62.5 mcg-vilant 25 mcg .COMPLEX #60 blisters inhalat.powder (Trelegy Ellipta) Allergies Allergy/AdvReac Type Severity Reaction Status Date / Time lisinopril Allergy Mild Cough Verified 05/08/24 09:17 codeine (CODEINE) Allergy Unknown Verified 05/08/24 09:17 [facility] Disclaimer: The information contained in this section may have been updated after the patient was seen, as this information can be updated by other users. Medical History , [employer]) Dyspnea on exertion Encounter for screening for malignant neoplasm of lung Smoking greater than 30 pack years History of COPD Edema Carotid bruit Cardiac murmur Atrial fibrillation Hypertension Leg pain Surgical History , [employer]) History of tonsillectomy History of cholecystectomy History of colonoscopy Family History , [employer]) Father Coronary artery disease Father Social History , [employer]) Smoking Status: Former smoker tobacco type: cigarettes packs per day: 1 alcohol intake: never substance use type: denies use current occupational status: retired and other Travel in the last 8 weeks: None household members: none housing: house Have you lived/traveled outside US in past 30 days?: No Contact w/someone who lives/traveled outside US past 30 days?: No Exposure to someone with infectious disease in past 14 days?: No Do you have a fever (greater than 100.4 F or 38 C)?: No Have you tested positive for COVID-19: No Exposed to someone with COVID-19 in past 14 days?: No Do you have a sore throat?: No Do you have a cough?: No Do you have any weakness?: No Do you have any diarrhea?: No Are you experiencing any unusual bleeding?: No Do you have any muscle aches/pain?: No Do you have any abdominal pain?: No Are you experiencing loss of taste or smell?: No Other Medical History Have you received the Flu Vaccine for this season: Yes Have you received the Pneumonia Vaccine: Yes ROS Obtained: Yes Systems reviewed as appropriate & no additional complaints except as documented Constitutional Constitutional: Reports system reviewed and no additional complaints, except as documented and Reports as per HPI Gastrointestinal Gastrointestingal: Reports system reviewed and no additional complaints, except as documented, as per HPI and other Physical Exam General General appearance: alert and in no apparent distress Respiratory Respiratory exam: Present normal lung sounds bilaterally Cardiovascular Cardiovascular exam: Present irregular rhythm and systolic murmur Abdominal Exam Abdominal exam: Present soft, distention and normal bowel sounds Comment: Ascites Neurological Exam Neurological exam: Present alert and oriented X3 Skin Skin exam: Present warm and intact Medical Decision Making Medical Records Medical records reviewed: Yes I reviewed the patient's medical records. Screening: Per USPSTF and CDC recommendations, given the prevalence of disease in our region, it is our hospital?s policy to screen for HIV and viral Hepatitis for all patients aged 18 and over and those with ongoing risk factors. Alex Inquiry Pt receiving controlled substance: No Vital Signs: 07/07/24 16:31 07/07/24 16:35 07/07/24 17:23 Temperature 97.8 F Temperature Source Oral Pulse Rate 81 86 Pulse Rate [Left Radial] 87 Respiratory Rate 20 Blood Pressure 109/59 L 103/57 L Blood Pressure [Right Arm] 109/59 L Blood Pressure Mean Blood Pressure Mean [Right Arm] 75 02 Sat by Pulse Oximetry 93 L 93 L 96 Oxygen Delivery Method Nasal Cannula Nasal Cannula Nasal Cannula Oxygen Flow Rate (LPM) 2 3 07/07/24 17:28 07/07/24 18:00 07/07/24 18:30 Temperature Temperature Source Pulse Rate 85 86 76 Pulse Rate [Left Radial] Respiratory Rate Blood Pressure 103/71 L 132/74 133/65 Blood Pressure [Right Arm] Blood Pressure Mean 93 Blood Pressure Mean [Right Arm] 02 Sat by Pulse Oximetry 95 96 95 Oxygen Delivery Method Nasal Cannula Nasal Cannula Nasal Cannula Oxygen Flow Rate (LPM) Lab Data Lab results reviewed: Yes I reviewed the patient's lab results. Lab Results 07/07/24 16:58: WBC 9.9, RBC 4.21, Hgb 12.3, Hct 37.8, MCV 89.8, MCH 29.2, MCHC 32.5, RDW 18.9 H, Plt Count 121 L, MPV 11.4 H, Neut % (Auto) 87.6 H, Lymph % (Auto) 5.5 L, Norton % (Auto) 5.7, Eos % (Auto) 0.5, Baso % (Auto) 0.3, Neut # (Auto) 8.7 H, Lymph # (Auto) 0.6 L, Norton # (Auto) 0.6, Eos # (Auto) 0.1, Baso # (Auto) 0.0, PT 15.4 H, INR 1.45 H, Sodium 132 L, Potassium 4.1, Chloride 106, C arbon Dioxide 16 L, Anion Gap 14.1, BUN 60 H, Creatinine 1.70 H, Estimated Creat Clear 49, Estimated GFR 30 L, Est GFR ( Amer) 36 L, Glucose 118 H, L actate 2.6 H, Calcium 8.3 L, Total Bilirubin 1.7 H, AST 85 H, ALT 44, Alkaline Phosphatase 157 H, Total Protein 6.9 D, Albumin 2.8 L, Globulin 4.1 H, A lbumin/Globulin Ratio 0.7 L, HCV Ab TAMIKO w/Rflx PCR Qn Negative 07/07/24 17:20: Fluid Source Peritoneal fluid, Fluid Volume 2024, Fluid Appearance Normal, Fluid RBC (Auto) < 10, Fld Tot Nucleated Cell 90 07/07/24 17:50: Lactate Dehydrogenase 311 L 07/07/24 16:58 07/07/24 16:58 Orders (Tests/Meds): ORDERS Category Date Time Status Chest XR -- portable [XR chest portable] Stat Exams 07/07/24 16:42 Taken POCUS Point of Care (ER Only) Stat Exams 07/07/24 16:56 Taken Body Fluid: Cell Count w/ Diff Stat Lab 07/07/24 17:20 Results CBC w/Auto Diff [Complete Blood Count Auto Diff] Stat Lab 07/07/24 16:58 Completed CMP [Comprehensive Metabolic Panel] Stat Lab 07/07/24 16:58 Completed Cytology Routine Lab 07/07/24 17:24 Ordered HIV Combo Stat Lab 07/07/24 16:58 Received Hepatitis C Ab Qual. W/ RFX Stat Lab 07/07/24 16:58 Completed Lactate Dehydrogenase Stat Lab 07/07/24 17:50 Completed Lactic Acid Stat Lab 07/07/24 16:58 Completed PT/INR [Prothrombin Time INR] Stat Lab 07/07/24 16:58 Completed Body Fluid Cult & Gram Stain Stat Micro 07/07/24 17:24 Received Medical Decision Narrative: In summary patient is a 69-year-old female who presents to the emergency department for evaluation of complaints of weakness and abdominal swelling. Patient was inpatient at [facility] about a month ago due to a fall and had a paracentesis done there. Patient states she had her first paracentesis done at [facility] about a month prior to them when she had at . Patient states she has cirrhosis of the liver with portal hypertension. Patient denies drinking alcohol. Patient is hemodynamically stable upon arrival, afebrile. Distended abdomen. Differential diagnosis includes ascites. Initial workup will be conducted with labs, chest x-ray, abdominal ultrasound. Initial inventions include paracentesis with 2025 ml out. Initial workup reviewed by va labs, fluid, chest x-ray, ultrasound. Upon repeat evaluation patient sitting up in bed tolerating p.o. liquids, patient states abdomen pressure and tightness feels much better since paracentesis. Patient was able to walk while in the ER with assistance of a walker( uses walker at home). given this patient appropriate for discharge at this time will discharge home with close follow-up with PCP and GI. Procedures Paracentesis Time Out Performed: Yes Local Anesthetic: lidocaine 1% Amount of anesthesia used (mL): 10 Fluid: clear Post Procedure Exam: awake, alert, normal BP and normal SpO2 Patient Tolerated Procedure: well Complications: none Critical Care Critical Care Time Critical Care Time: No
--- NOTE | 2024-07-07 16:50 | PC.NURSE ---
consent signed. time out performed yris key m philpot at bedside for procedure. paracentesis performed. fluid sent to lab for testing. pt with no complaints.
--- NOTE | 2024-07-07 17:05 | PC.NURSE ---
AT FOR PROCEDURE
[2024-07-07 17:59] LABS: Appearance,Body Fld. Normal; Source, Body Fld. Peritoneal Fluid
[2024-07-07 18:00] LABS: RBC,Body Fluid < 10 cells/uL (< 10 X 10^3); TNC,Body Fluid 90 cells/uL (< 1000)
[2024-07-07 18:02] LABS: Basophils % 0.3 % (0.1-2.0); Eosinophils # 0.1 K/mm3 (0.0-0.4); Eosinophils % 0.5 % (0.1-12.0); Hematocrit 37.8 % (37.0-47.0); Hemoglobin 12.3 g/dL (12.2-16.2); Lymphocytes # 0.6 K/mm3 (0.7-4.5); Lymphocytes % 5.5 % (10-50); Mean Corpuscular HGB Conc 32.5 g/dL (31.8-35.4); Mean Corpuscular Hemoglobin 29.2 pg (27.0-31.2); Mean Corpuscular Volume 89.8 fl (81-99); Mean Platelet Volume 11.4 fl (7.4-10.4); Monocytes # 0.6 K/mm3 (0.1-1.0); Monocytes % 5.7 % (1.7-9.3); Neutrophils # 8.7 K/mm3 (1.8-7.8); Neutrophils % 87.6 % (37.0-80.0); Platelet Count 121 K/mm3 (142-424); Red Blood Count 4.21 M/mm3 (4.20-5.40); Red Cell Distribution Width 18.9 % (11.5-17.5); White Blood Count 9.9 K/mm3 (4.8-10.8)
[2024-07-07 18:04] LABS: Albumin Level 2.8 g/dl (3.5-5.0); Chloride 106 mmol/L (98-107); Potassium 4.1 mmoL/L (3.5-5.1); Sodium 132 mmol/L (136-145)
[2024-07-07 18:07] LABS: Alanine Aminotransferase 44 U/L (12-78); Albumin/Globulin Ratio 0.7 (1.1-1.8); Alkaline Phosphatase 157 U/L (38-126); Anion Gap 14.1 mEq/L (5-15); Aspartate Amino Transferase 85 U/L (14-36); Bilirubin,Total 1.7 mg/dl (0.2-1.3); Blood Urea Nitrogen 60 mg/dl (7-17); Calcium 8.3 mg/dl (8.4-10.2); Carbon Dioxide 16 mmol/L (22.0-30.0); Creatinine Clearance Estimated 49 mL/min (50-200); Estimated Glomerular Filt Rate 30 ml/min (>60); GFR (African American) 36 ML/MIN (>60); Globulin 4.1 g/dL (1.3-3.2); Glucose 118 mg/dl (74-100); Total Protein,Serum 6.9 g/dl (6.3-8.2)
[2024-07-07 18:08] LABS: INR 1.45 (0.9-1.1); Prothrombin Time 15.4 seconds (9.2-12.1)
[2024-07-07 18:10] LABS: Lactic Acid 2.6 mmol/L (0.7-2.1)
--- NOTE | 2024-07-07 18:12 | PC.NURSE ---
2025 ml drained from abdomen.
[2024-07-07 18:13] LABS: Hepatitis C Ab Qual. W/ RFX NEGATIVE (Negative)
[2024-07-07 18:21] LABS: Lactate Dehydrogenase 311 U/L (313-618)
[2024-07-07 18:43] LABS: Volume,Body Fld. 2025 mL
[2024-07-07 18:58] LABS: HIV Combo NEGATIVE (Negative)
[2024-07-07] MEDS: ACETAMINOPHEN 325MG TAB 650 MG PO (19:06)
--- NOTE | 2024-07-07 19:13 | PC.NURSE ---
Patient able to walk to door and back to bed. Approx. 15 ft.
--- NOTE | 2024-07-07 19:17 | PC.NURSE ---
Assisted pt with ambulation on walker. Pt ambulated to door way and back x1 assist
[2024-07-07 19:36] LABS: Mononuclear WBCs,Body Fluid 54 %; Polynuclear WBC,Body Fluid 46 %
--- NOTE | 2024-07-07 19:43 | PC.NURSE ---
IV removed. Catheter tip intact. Bleeding controlled.
--- NOTE | 2024-07-07 19:51 | PC.NURSE ---
Patient adalgisa just now arrived; she is d/c now.
[2024-07-07 21:02] LABS: Reflex Lactic Add Lactic Reflex
== END 2024-07-07 19:51 | disposition home or self-care (01) ==
PROVIDERS: Nurse Practitioner Family; Emergency Provider Student in an Organized Health Care Education/Training Program
DX: K74.69 Other cirrhosis of liver (principal); R18.8 Other ascites; R53.1 Weakness
CPT/HCPCS: 49082; 71045; 80053; 82042; 82945; 83605; 83615; 84155; 85025; 85610; 86803; 87070; 87205; 87389; 89051; 99284

== ENCOUNTER 2024-07-21 09:59 | Emergency (ER) | payer MEDICARE, MEDICAID, SELFPAY ==
[2024-07-21] VITALS (43 sets, daily range): BP systolic 0–149; BP diastolic 0–120; PULSE 0–141; RESP 0–99; TEMP -17.7–35.7; O2SAT 0–100; BMI 42.5
[2024-07-21] MEDS: EPINEPHrine 0.1 MG/ML 10ML SYRINGE (CRASH CART) 1 MG IV ×8 (10:00→11:30)
[2024-07-21] MEDS: 0.9 % SODIUM CHLORIDE 1000ML 1,000 ML 999 ML IV ×2 (10:00→11:23)
[2024-07-21] MEDS: DEXTROSE 50% 50ML SYRINGE (CRASH CART) 50 ML IVP (10:01)
[2024-07-21] MEDS: SODIUM BICARB 8.4% 50ML SYRINGE (CRASH CART) 50 MEQ IV ×3 (10:10→11:58)
[2024-07-21] MEDS: NOREPINEPHRINE BITARTRATE 8 MG in 0.9 % SODIUM CHLORIDE 250 ML 15.48 MG IV (10:16)
--- NOTE | 2024-07-21 10:16 | ECG_ITS ---
APPROVED REPORT Exam: Resting ECG HR:131 bpm ECG Measurements Heart Rate 131 AXES QRSd 129 QRS -26 QT 319 T 60 QTc 396 Conclusion UNCERTAIN IRREGULAR RHYTHM Ventricular tachycardia Borderline left axis deviation No obvious acute ST elevations Electronically signed by : ANIBAL MARTINEZ, 07/21/2024 15:29:00
[2024-07-21] MEDS: AMIODARONE HCL 150 MG in DEXTROSE 5 % IN WATER 100 ML 600 MG IV (10:20)
[2024-07-21] MEDS: EPINEPHrine 5 MG in 0.9 % SODIUM CHLORIDE 250 ML 6.12 MG IV (10:40)
[2024-07-21] MEDS: CALCIUM CHLORIDE 2 GM in 0.9 % SODIUM CHLORIDE 250 ML IV (10:43)
[2024-07-21] MEDS: LIDOCAINE 2% 100 MG/5ML SYRINGE (CRASH CART) 125 MG IV (10:48)
--- NOTE | 2024-07-21 11:01 | PC.NURSE ---
speaking with pts daughter.
[2024-07-21] MEDS: PANTOPRAZOLE 40MG VIAL 40 MG IV (11:06)
[2024-07-21 11:20] LABS: ABG Base Excess -27.3 mmol/L (-2.4-2.3); ABG HCO3 5.5 mmhg (22.0-26.0); ABG Oxygen Saturation 93 % (90-100); ABG PCO2 28.6 mmhg (35.0-45.0); ABG PO2 99.5 mmhg (80-100); ABG TCO2 6.4 mmhg (23-27)
[2024-07-21 11:21] LABS: Oxygen 100% %; Source ALINE
--- NOTE | 2024-07-21 11:21 | PC.NURSE ---
Patient in room and needs nothing
[2024-07-21] MEDS: SODIUM BICARBONATE 150 MEQ in DEXTROSE 5 % IN WATER 1,000 ML IV ×2 (11:25→18:19)
[2024-07-21] MEDS: HYDROCORTISONE SOD SUCCINATE 100MG VIAL 100 MG IV (11:31)
--- NOTE | 2024-07-21 11:43 | PC.NURSE ---
CALLED [facility] FOR PT TRANSFER FOR CARDIAC ARREST LET THEM KNOW PT STABLE AT THIS TIME AND IS INTUBATED AND ART LINE PLACED.[facility] STATES THEY WILL GET MD AND CALL BACK
--- NOTE | 2024-07-21 11:48 | ED_ITS ---
Discharge Plan Disposition Patient Disposition: Date/Time: 07/21/24 20:36 Clinical Impressions Clinical Impression: Cardiac arrest, Multiorgan failure, DIC (disseminated intravascular coagulation), Respiratory arrest before cardiac arrest, Septic shock, Cardiogenic shock Discharge ED Provider: Joey Brown General Adult HPI <Joey Brown MD - Last Filed: 07/22/24 07:28> General Stated complaint: cardiac arrest Time Seen by Provider: 07/21/24 10:00 History of Present Illness HPI narrative: Patient presents as code 500 Related Data Home Medications ?Medication ?Instructions ?Recorded ?Confirmed ursodiol 300 mg capsule 300 mg PO DAILY 02/21/24 07/18/24 furosemide 40 mg tablet 40 mg PO DAILY 03/05/24 07/18/24 acetaminophen 325 mg capsule 325 mg PO QID PRN 07/16/24 07/18/24 cetirizine 10 mg tablet (All Day 10 mg PO DAILY PRN 07/16/24 07/18/24 Allergy (cetirizine)) methocarbamol 750 mg tablet 750 mg PO QID 07/16/24 07/18/24 oxycodone 5 mg tablet 5 mg PO Q6H PRN 07/16/24 07/18/24 spironolactone 50 mg tablet 50 mg PO DAILY 07/16/24 07/18/24 vitamin B complex 1 tab PO DAILY 07/16/24 07/18/24 Previous Rx's ?Medication ?Instructions ?Recorded aspirin 81 mg tablet,delayed 81 mg PO DAILY #90 tabs 03/27/24 release ergocalciferol (vitamin D2) 1,250 1,250 mcg PO QWEEK #15 caps 03/27/24 mcg (50,000 unit) capsule escitalopram oxalate 10 mg tablet 10 mg PO DAILY #90 tabs 05/16/24 albuterol sulfate 90 mcg/actuation See Rx Instructions .Route 05/28/24 aerosol inhaler .COMPLEX #8.5 grams atorvastatin 40 mg tablet See Rx Instructions .Route 05/28/24 .COMPLEX #30 tabs fluticasone fur. 100 mcg-umeclid See Rx Instructions .Route 05/28/24 62.5 mcg-vilant 25 mcg .COMPLEX #60 blisters inhalat.powder (Trelegy Ellipta) rifaximin 550 mg tablet (Xifaxan) 550 mg PO BID #180 tabs 07/18/24 oxycodone 5 mg tablet 5 mg PO TID PRN pain #60 tabs 07/19/24 Allergies Allergy/AdvReac Type Severity Reaction Status Date / Time lisinopril Allergy Mild Cough Verified 07/16/24 13:27 codeine (CODEINE) Allergy Unknown Verified 07/16/24 13:27 [facility] <Joey Brown MD - Last Filed: 07/22/24 07:28> [facility] Disclaimer: The information contained in this section may have been updated after the patient was seen, as this information can be updated by other users. Medical History Dyspnea on exertion Encounter for screening for malignant neoplasm of lung Smoking greater than 30 pack years History of COPD Edema Carotid bruit Carotid Dopplers that were done on November 26, 2022 revealed less than 50% stenosis bilaterally. Will follow carefully. Cardiac murmur Patient is following with cardiology. Echocardiogram done October 2018 reveals a thickened and calcific aortic valve and mild MR and TR. I did hear a murmur today which was a systolic murmur which probably represents aortic regurg. Atrial fibrillation Patient is being followed by cardiology. Today she was regular rate and rhythm. Hypertension Leg pain Surgical History History of tonsillectomy History of cholecystectomy History of colonoscopy Family History Father Coronary artery disease Social History Smoking Status: Former smoker tobacco type: cigarettes packs per day: 1 alcohol intake: never substance use type: denies use current occupational status: retired and other Travel in the last 8 weeks: None household members: none housing: house Have you lived/traveled outside US in past 30 days?: No Contact w/someone who lives/traveled outside US past 30 days?: No Exposure to someone with infectious disease in past 14 days?: No Do you have a fever (greater than 100.4 F or 38 C)?: No Have you tested positive for COVID-19: No Exposed to someone with COVID-19 in past 14 days?: No Do you have a sore throat?: No Do you have a cough?: No Do you have any weakness?: No Do you have any diarrhea?: No Are you experiencing any unusual bleeding?: No Do you have any muscle aches/pain?: No Do you have any abdominal pain?: No Are you experiencing loss of taste or smell?: No Other Medical History Have you received the Flu Vaccine for this season: Yes Have you received the Pneumonia Vaccine: Yes <Joey Brown MD - Last Filed: 07/22/24 07:28> ROS Obtained: Yes unobtainable due to mental status Physical Exam <Joey Brown MD - Last Filed: 07/22/24 07:28> General General appearance: other Comment: Pulseless, ZOLL auto pulse in place, intubated Eye Eye exam: Present other (Fixed and dilated) ENT ENT exam: Present mucous membranes moist (Patient has bilious material versus coffee-ground emesis in oropharynx) Respiratory Respiratory exam: Present other (Left-sided breath sounds, right side without adequate breath sounds. ET tube nearly hubbed) Cardiovascular Cardiovascular exam: Present other (Pulse) Abdominal Exam Abdominal exam: Present distention Extremities Exam Extremities exam: Present edema Neurological Exam Neurological exam: Present other (GCS 3 T off sedation) Medical Decision Making <Joey Brown MD - Last Filed: 07/22/24 07:28> Medical Records Medical records reviewed: Yes I reviewed the patient's medical records. Screening: Per USPSTF and CDC recommendations, given the prevalence of disease in our region, it is our hospital?s policy to screen for HIV and viral Hepatitis for all patients aged 18 and over and those with ongoing risk factors. Alex Inquiry Pt receiving controlled substance: No Alex was queried for this patient: No Vital Signs: 07/21/24 09:59 07/21/24 10:18 07/21/24 10:23 Temperature Temperature Source Pulse Rate 63 102 H Respiratory Rate Blood Pressure 134/114 H 149/120 H Blood Pressure Mean 120 129 Blood Pressure Source 02 Sat by Pulse Oximetry 99 91 L Oxygen Delivery Method Mechanical Ventilation Mechanical Ventilation Oxygen Flow Rate (LPM) 15 Fraction of Inspired Oxygen 07/21/24 10:30 07/21/24 11:00 07/21/24 11:15 Temperature Temperature Source Pulse Rate 94 H 141 H 74 Respiratory Rate 18 18 9 L Blood Pressure 149/120 H 121/101 H 55/38 L Blood Pressure Mean Blood Pressure Source Arterial Line 02 Sat by Pulse Oximetry 100 89 L 99 Oxygen Delivery Method Mechanical Ventilation Oxygen Flow Rate (LPM) Fraction of Inspired Oxygen 07/21/24 11:30 07/21/24 11:30 07/21/24 11:45 Temperature Temperature Source Pulse Rate 73 90 Respiratory Rate 18 8 L 18 Blood Pressure 49/33 L 82/53 L Blood Pressure Mean Blood Pressure Source Arterial Line Arterial Line 02 Sat by Pulse Oximetry 95 100 99 Oxygen Delivery Method Mechanical Ventilation Mechanical Ventilation Oxygen Flow Rate (LPM) Fraction of Inspired Oxygen 100 07/21/24 12:00 07/21/24 12:00 07/21/24 12:15 Temperature 95.5 F L 95.5 F L 96.3 F L Temperature Source Core Pulse Rate 99 H 89 92 H Respiratory Rate 99 H 18 18 Blood Pressure 68/45 L 68/46 L 62/39 L Blood Pressure Mean Blood Pressure Source Arterial Line Arterial Line 02 Sat by Pulse Oximetry 99 100 100 Oxygen Delivery Method Mechanical Ventilation Mechanical Ventilation Oxygen Flow Rate (LPM) Fraction of Inspired Oxygen 07/21/24 12:07/21/24 12:30 07/21/24 12:45 Temperature 96.3 F L 96.3 F L 96.3 F L Temperature Source Core Pulse Rate 101 H 100 H 89 Respiratory Rate 18 18 18 Blood Pressure 81/50 L 81/50 L 84/53 L Blood Pressure Mean Blood Pressure Source Arterial Line Arterial Line 02 Sat by Pulse Oximetry 98 98 99 Oxygen Delivery Method Mechanical Ventilation Mechanical Ventilation Oxygen Flow Rate (LPM) Fraction of Inspired Oxygen 07/21/24 13:00 07/21/24 13:07/21/24 13:15 Temperature 96.1 F L 96.1 F L 95.9 F L Temperature Source Core Pulse Rate 92 H 91 H 88 Respiratory Rate 18 18 18 Blood Pressure 68/45 L 68/45 L 60/40 L Blood Pressure Mean Blood Pressure Source Arterial Line Arterial Line 02 Sat by Pulse Oximetry 97 97 95 Oxygen Delivery Method Mechanical Ventilation Mechanical Ventilation Mechanical Ventilation Oxygen Flow Rate (LPM) Fraction of Inspired Oxygen 07/21/24 13:30 07/21/24 13:30 07/21/24 13:42 Temperature 95.9 F L 95.9 F L Temperature Source Pulse Rate 84 85 Respiratory Rate 18 18 18 Blood Pressure 58/38 L 58/38 L Blood Pressure Mean Blood Pressure Source Arterial Line 02 Sat by Pulse Oximetry 95 95 95 Oxygen Delivery Method Mechanical Ventilation Oxygen Flow Rate (LPM) Fraction of Inspired Oxygen 100 07/21/24 13:45 07/21/24 14:00 07/21/24 14:00 Temperature 95.9 F L 95.7 F L 95.7 F L Temperature Source Core Pulse Rate 83 73 74 Respiratory Rate 18 18 18 Blood Pressure 60/38 L 59/36 L 59/36 L Blood Pressure Mean Blood Pressure Source Arterial Line Arterial Line Arterial Line 02 Sat by Pulse Oximetry 95 97 97 Oxygen Delivery Method Mechanical Ventilation Mechanical Ventilation Mechanical Ventilation Oxygen Flow Rate (LPM) Fraction of Inspired Oxygen 07/21/24 14:15 07/21/24 14:30 07/21/24 14:30 Temperature 95.5 F L 95.5 F L 95.5 F L Temperature Source Core Pulse Rate 71 71 71 Respiratory Rate 18 18 18 Blood Pressure 53/32 L 49/28 L 49/28 L Blood Pressure Mean Blood Pressure Source Arterial Line Arterial Line Arterial Line 02 Sat by Pulse Oximetry 99 100 100 Oxygen Delivery Method Mechanical Ventilation Mechanical Ventilation Mechanical Ventilation Oxygen Flow Rate (LPM) Fraction of Inspired Oxygen 07/21/24 14:35 07/21/24 14:40 07/21/24 14:45 Temperature 95.4 F L 95.4 F L 95.4 F L Temperature Source Core Core Pulse Rate 70 69 68 Respiratory Rate 18 18 18 Blood Pressure 48/27 L 47/26 L 45/25 L Blood Pressure Mean Blood Pressure Source Arterial Line Arterial Line Arterial Line 02 Sat by Pulse Oximetry 100 100 100 Oxygen Delivery Method Mechanical Ventilation Oxygen Flow Rate (LPM) Fraction of Inspired Oxygen 07/21/24 14:50 07/21/24 15:00 07/21/24 15:00 Temperature 95.4 F L 95.2 F L 95.2 F L Temperature Source Core Pulse Rate 67 66 66 Respiratory Rate 18 18 18 Blood Pressure 44/25 L 43/23 L 43/23 L Blood Pressure Mean Blood Pressure Source Arterial Line Automatic Cuff Arterial Line 02 Sat by Pulse Oximetry 99 100 100 Oxygen Delivery Method Mechanical Ventilation Mechanical Ventilation Mechanical Ventilation Oxygen Flow Rate (LPM) Fraction of Inspired Oxygen 07/21/24 15:10 07/21/24 15:15 07/21/24 15:18 Temperature 95.2 F L 95.0 F L Temperature Source Pulse Rate 64 63 73 Respiratory Rate 18 18 18 Blood Pressure 42/22 L 40/21 L 49/33 L Blood Pressure Mean Blood Pressure Source Arterial Line Arterial Line 02 Sat by Pulse Oximetry 96 99 Oxygen Delivery Method Mechanical Ventilation Mechanical Ventilation Oxygen Flow Rate (LPM) Fraction of Inspired Oxygen 07/21/24 15:20 07/21/24 15:30 07/21/24 15:30 Temperature 95.0 F L 95.0 F L 94.8 F L Temperature Source Core Core Pulse Rate 63 60 60 Respiratory Rate 18 18 18 Blood Pressure 39/21 L 38/20 L 38/20 L Blood Pressure Mean Blood Pressure Source Arterial Line 02 Sat by Pulse Oximetry 99 96 96 Oxygen Delivery Method Mechanical Ventilation Mechanical Ventilation Oxygen Flow Rate (LPM) Fraction of Inspired Oxygen 07/21/24 15:45 07/21/24 16:00 07/21/24 16:15 Temperature 94.8 F L 94.6 F L 94.5 F L Temperature Source Pulse Rate 57 L 51 L 51 L Respiratory Rate 18 18 18 Blood Pressure 40/21 L 42/22 L 45/23 L Blood Pressure Mean Blood Pressure Source Arterial Line Arterial Line Arterial Line 02 Sat by Pulse Oximetry 95 99 100 Oxygen Delivery Method Mechanical Ventilation Mechanical Ventilation Mechanical Ventilation Oxygen Flow Rate (LPM) Fraction of Inspired Oxygen 07/21/24 16:30 07/21/24 16:45 07/21/24 17:00 Temperature 94.3 F L 94.1 F L 93.9 F L Temperature Source Pulse Rate 56 L 55 L 54 L Respiratory Rate 18 18 18 Blood Pressure 51/26 L 52/27 L 52/27 L Blood Pressure Mean Blood Pressure Source Arterial Line Arterial Line Arterial Line 02 Sat by Pulse Oximetry 99 95 95 Oxygen Delivery Method Mechanical Ventilation Mechanical Ventilation Mechanical Ventilation Oxygen Flow Rate (LPM) Fraction of Inspired Oxygen 07/21/24 17:15 07/21/24 17:30 07/21/24 17:45 Temperature 93.9 F L 93.7 F L 93.7 F L Temperature Source Pulse Rate 54 L 55 L 54 L Respiratory Rate 18 18 18 Blood Pressure 54/29 L 60/32 L 62/32 L Blood Pressure Mean Blood Pressure Source Arterial Line Arterial Line Arterial Line 02 Sat by Pulse Oximetry 100 100 99 Oxygen Delivery Method Mechanical Ventilation Mechanical Ventilation Mechanical Ventilation Oxygen Flow Rate (LPM) Fraction of Inspired Oxygen 07/21/24 18:00 07/21/24 18:15 07/21/24 18:30 Temperature 93.6 F L 93.6 F L 93.6 F L Temperature Source Pulse Rate 55 L 54 L 53 L Respiratory Rate 16 18 18 Blood Pressure 66/34 L 64/33 L 67/35 L Blood Pressure Mean Blood Pressure Source Arterial Line Arterial Line Arterial Line 02 Sat by Pulse Oximetry 100 97 95 Oxygen Delivery Method Mechanical Ventilation Mechanical Ventilation Mechanical Ventilation Oxygen Flow Rate (LPM) Fraction of Inspired Oxygen 07/21/24 18:45 07/21/24 22:38 Temperature 93.4 F L 0 F L Temperature Source Pulse Rate 54 L 0 L Respiratory Rate 18 0 L Blood Pressure 70/36 L 0/0 L Blood Pressure Mean Blood Pressure Source Arterial Line 02 Sat by Pulse Oximetry 97 Oxygen Delivery Method Mechanical Ventilation Oxygen Flow Rate (LPM) Fraction of Inspired Oxygen Lab Data Lab Results 07/21/24 11:16: Specimen Source Pam, O2 % 100%, ABG pH 6.90 L*, ABG pCO2 28.6 L, ABG pO2 99.5, ABG HCO3 5.5 L, ABG Total CO2 6.4 L, ABG O2 Saturation 93, ABG Base Excess -27.3 L 07/21/24 11:56: WBC 19.7 H, RBC 4.00 L, Hgb 11.6 L, Hct 37.4, MCV 93.5, MCH 29.0, MCHC 31.0 L, RDW 19.2 H, Plt Count 142, MPV 10.2, Neut % (Auto) 90.4 H, L ymph % (Auto) 4.2 L, [place] % (Auto) 2.9, Eos % (Auto) 0.2, Baso % (Auto) 0.3, N eut # (Auto) 17.8 H, Lymph # (Auto) 0.8, [place] # (Auto) 0.6, Eos # (Auto) 0.0, Baso # (Auto) 0.1, Total Counted 100, Neutrophils % (Manual) 95 H, Lymphocytes % (Manual) 3 L, Monocytes % (Manual) 2, Platelet Estimate Normal, RBC Morphology Normal, Acanthocytes (Spur) 2+, Sodium 128 L, Potassium 4.8, Chloride 99, Carbon Dioxide 8 L*, Anion Gap 25.8 H, BUN 66 H, Creatinine 3.30 H, Estimated GFR 14 L* , Est GFR ( Amer) 17 L*, Glucose 159 H, Calcium 10.2, Total Bilirubin 1.3, AST 1724 H*, ALT 406 H*, Alkaline Phosphatase 161 H, Ammonia 209 H, T roponin I 0.33 H, Total Protein 5.0 L D, Albumin 1.7 L, Globulin 3.3 H, A lbumin/Globulin Ratio 0.5 L, TSH 9.56 H, Thyroxine (T4) 2.2 L, Urine Color Dark yellow, Urine Appearance Turbid, Urine pH 5.5, Ur Specific [place] 1.025, Urine Protein Trace, Urine Glucose (UA) Negative, Urine Ketones Trace, Urine Blood 1+ A, Urine Nitrate Negative, Urine Bilirubin Negative, Urine Urobilinogen 0.2, Ur Leukocyte Esterase 2+ A, Urine RBC Occasional, Urine WBC 5-10, Ur Squamous Epith Cells Occasional, Urine Bacteria 1+, Salicylates < 1.0 L, Acetone Level None detected, Blood Type A Negative, Antibody Screen Positive 07/21/24 12:06: PT 31.8 H, INR 3.25 H, APTT 139.0 H* D, Lactate 12.9 H, Magnesium 2.2, NT-Pro-B Natriuret Pep 1350 H, Plasma/Serum Alcohol < 10 07/21/24 18:00: Lactate 12.8 H, Troponin I 1.80 H 07/21/24 11:56 07/21/24 11:56 Orders (Tests/Meds): ED MEDICATIONS Discontinued Medications Generic Name Dose Route Start Last Admin Trade Name Fabiánq PRN Reason Stop Dose Admin Dextrose 50 ml 07/21/24 14:40 07/21/24 10:01 Dextrose 50% 50ml Syringe (Crash Cart) IVP 07/21/24 14:41 50 ml ONCE ONE Administration Epinephrine HCl 1 mg 07/21/24 14:40 07/21/24 11:30 Epinephrine 0.1 Mg/Ml 10ml Syringe (Crash Cart) IV 08/20/24 14:39 0.5 mg NEEDED PRN Administration Code Blue Med Administration Glycopyrrolate 0.2 mg 07/21/24 20:10 07/21/24 20:26 Glycopyrrolate 0.2 Mg/Ml 1ml Vial IV 07/21/24 20:11 0.2 mg ONCE ONE Administration Hydrocortisone Sodium Succinate 100 mg 07/21/24 14:40 07/21/24 11:31 Hydrocortisone Sod Succinate 100mg Vial IV 07/21/24 14:41 100 mg ONCE ONE Administration Piperacillin Sod/Tazobactam 100 mls @ 200 mls/hr 07/21/24 11:43 07/21/24 16:28 Sod 4.5 gm/ Sodium Chloride IV 07/21/24 12:12 200 mls/hr ONCE ONE Administration Vancomycin/PEG/NADA/Lysine/Water 1.75 gm in 350 mls @ 175 mls/hr 07/21/24 12:00 07/21/24 17:08 Vancomycin 1.75gm/350ml (Peg) Premix IV 07/21/24 13:59 175 mls/hr ONCE ONE Administration Phenylephrine HCl 10 mg/ 251 mls @ 542.16 mls/hr 07/21/24 12:30 07/21/24 13:59 Sodium Chloride IV 08/20/24 12:29 360 mcg/min .Q28M KEN 542.16 mls/hr Administration Protocol 360 MCG/MIN Amiodarone HCl 150 mg/ 103 mls @ 600 mls/hr 07/21/24 14:40 07/21/24 10:20 Dextrose IV 07/21/24 14:50 600 mls/hr ONCE ONE Administration Calcium Chloride 2 gm/ Sodium 270 mls @ 67.5 mls/hr 07/21/24 14:40 07/21/24 10:43 Chloride IV 07/21/24 14:41 67.5 mls/hr ONCE ONE Administration Epinephrine HCl 5 mg/ Sodium 255 mls @ 61.2 mls/hr 07/21/24 14:45 07/21/24 17:05 Chloride IV 08/20/24 14:44 Infused .Q4H10M KEN Titration Protocol 20 MCG/MIN Norepinephrine Bitartrate 8 mg 258 mls @ 61.92 mls/hr 07/21/24 14:45 07/21/24 12:30 / Sodium Chloride IV 08/20/24 14:44 32 mcg/min .Q4H10M KEN 61.92 mls/hr Titration Protocol 32 MCG/MIN Sodium Chloride 1,000 mls @ 999 mls/hr 07/21/24 16:54 07/21/24 10:00 Sod Chlor 0.9% 1000ml Bag IV 07/21/24 17:54 999 mls/hr .Q1H1M ONE Administration Sodium Chloride 1,000 mls @ 999 mls/hr 07/21/24 16:59 07/21/24 11:23 Sod Chlor 0.9% 1000ml Bag IV 07/21/24 17:59 999 mls/hr .Q1H1M ONE Administration Sodium Bicarbonate 150 meq/ 1,150 mls @ 150 mls/hr 07/21/24 18:15 07/21/24 11:25 Dextrose IV 08/20/24 18:14 150 mls/hr .Q7H40M KEN Administration Sodium Bicarbonate 150 meq/ 1,150 mls @ 150 mls/hr 07/21/24 18:45 07/21/24 18:19 Dextrose IV 08/20/24 18:44 150 mls/hr .Q7H40M KEN Administration Lidocaine HCl 125 mg 07/21/24 14:40 07/21/24 10:48 Lidocaine 2% 100 Mg/5ml Syringe (Crash Cart) IV 07/21/24 14:41 125 mg ONCE ONE Administration Miscellaneous 1 each 07/21/24 11:45 07/21/24 12:16 Vancomycin Consult Request NOTAPPLIC 08/20/24 11:44 1 each CONSULT PHARMACY KEN Administration Pantoprazole Sodium 40 mg 07/21/24 14:40 07/21/24 11:06 Pantoprazole 40mg Vial IV 07/21/24 14:41 40 mg ONCE ONE Administration Sodium Bicarbonate 50 meq 07/21/24 14:40 07/21/24 11:58 Sodium Bicarb 8.4% 50ml Syringe (Crash Cart) IV 08/20/24 14:39 50 meq ONCE PRN Administration Code Blue Med Administration Sodium Chloride 10 ml 07/21/24 14:40 Sodium Chloride 0.9% 10ml Vial IV 08/20/24 14:39 NEEDED PRN dilute protonix ORDERS Category Date Time Status Antibody Identification Stat [facility] 07/21/24 11:56 Received Type and Screen Stat K 07/21/24 11:56 Completed POCUS Point of Care (ER Only) Stat Exams 07/21/24 10:12 Taken Acetone, Serum (Rapid) Stat Lab 07/21/24 11:56 Completed Ammonia Stat Lab 07/21/24 11:56 Completed Complete Blood Count Auto Diff Stat Lab 07/21/24 11:56 Completed Comprehensive Metabolic Panel Stat Lab 07/21/24 11:56 Completed Ethanol [Ethyl Alcohol] Stat Lab 07/21/24 12:06 Completed Lactic Acid Follow Up (RFLX 1) Stat Lab 07/21/24 18:00 Completed Lactic Acid Stat Lab 07/21/24 12:06 Completed Magnesium Stat Lab 07/21/24 12:06 Completed NT Pro Brain Natriuretic Pep. Stat Lab 07/21/24 12:06 Completed PT INR [Prothrombin Time INR] Stat Lab 07/21/24 12:06 Completed PTT [Activated Partial Thrombo Time] Stat Lab 07/21/24 12:06 Completed Salicylate Stat Lab 07/21/24 11:56 Completed T4 (Thyroxine) Stat Lab 07/21/24 11:56 Completed TSH [Thyroid Stimulating Hormone] Stat Lab 07/21/24 11:56 Completed Troponin I Q3H Lab 07/21/24 18:00 Completed Troponin I Stat Lab 07/21/24 11:56 Completed Urinalysis and Microscopic Stat Lab 07/21/24 11:56 Completed Blood Culture Stat Micro 07/21/24 16:23 Received Urine Culture Stat Micro 07/21/24 11:56 Received ABG [Arterial Blood Gas] Stat RT 07/21/24 11:48 Ordered Arterial Blood Gas Routine RT 07/21/24 11:16 Completed Medical Decision Narrative: This is a 69-year-old female with reported history of atrial fibrillation, liver failure, COPD presenting as code 500. Family called out because patient was hard to arouse, minimally responsive, seemed as if she was having difficulty breathing. EMS arrived. Upon arrival, EMS was concern for CVA given lack of movement on right side. Flight team was called outside emergency department and prior to flight team being able to transfer patient, patient lost pulses. Total downtime less than 2 minutes without CPR. Patient was brought to the emergency department for further evaluation. Pulseless, ET tube in place via flight team, decreased right-sided breath sounds, but ET tube nearly hubbed. Patient's pupils fixed and dilated. Abdomen is soft, distended. She does have bilious material versus coffee-ground emesis in her mouth. Glucose 43, amp of D50 was administered. Patient now on second liter of fluids with transport teams. Given respiratory failure, intubation, decreased breath sounds on the right, ET tube was replaced by me. Direct visualization with video laryngoscopy, tube was replaced with 8.0. Copious amounts of gastric materials in the back of the throat. 20 cm at the lip. Bilateral breath sounds, end-tidal placed. Patient's initial rhythm upon arrival asystole. Numerous rounds of ACLS were performed. Patient received multiple rounds of ACLS, epinephrine, as well as 2 g calcium, bicarbonate push. Multiple rounds of ACLS, patient multiple episodes of ROSC. Ventricular tachycardia with pulses and ventricular tachycardia without pulses. Patient was given amiodarone bolus 150 mg lost pulses again. Was given bolus of amiodarone second to total out 300 mg. Recurrent episodes of ROSC obtained, v tach. 1mg/kg lidocaine administered and ROSC achieved without loss of pulses again around 11:02 AM on 07/21. Independent interpretation of patient's EKG wide-complex tachycardia which is regular, ventricular tachycardia. 131 bpm, QRS 129, QTc 396. Appears to be normal axis. Right radial art line was placed, catheter ended up blowing artery and pressure was held. Right femoral arterial line was attempted to be placed, however arterial line supplies insufficient. Another attempt at right femoral arterial line successful with new femoral arterial line kits. Waveform confirmed. Left femoral CVC was placed triple-lumen under ultrasound guidance. Patient was started on norepinephrine drip, given 40 mg Protonix, 100 mg hydrocortisone. Patient maintains hypotensive blood pressures, was given another amp of bicarb. This seemed to help patient's pressures. Only lab initially was ABG off of A- line. I independently interpreted patient's ABG pH 6.90, CO2 low at 28, bicarb low at 5 with lactate over 10. Isotonic bicarb drip was hung and another amp (3 total at this point) of bicarb pushed for recurrent hypotension. Pressures responded favorably. Vasopressin started. Continues to have hypotensive pressures, more bicarb administered, patient started on phenylephrine drip. Independent interpretation of further workup with hyponatremia 128. Patient's potassium normal at 4.8. Anion gap 26. Liver function consistent with acute renal failure. Chemistry with acute renal failure BUN 66/creatinine 3.3. Venous lactate after fluids continuing to increase 12.9. BNP elevated at 1300, troponin elevated. Patient's coags consistent with developing DIC and coagulopathy. At this point, I contacted [facility] for transfer. They stated they needed a call back with ICU attending. Urinalysis with blood and leukocyte esterase, potentially urinary tract infection. Patient empirically antibiosis with Zosyn and vancomycin. At this point, patient becoming increasingly unstable. [facility] called back after about an hour and a half or 2 hours and at this point, patient too unstable for transfer. CT scans were ordered, however patient was never stable enough to go to CT scanner. I contacted patient's daughter and discussed likely outcome from the situation being multisystem organ failure. Daughter states that she wants to continue doing everything, and told me do not just let her . Reassurance was offered to daughter. I stated that we would not let her and we would continue maximal therapy, however we have reached the On what we are able to provide for this patient and she is in multiorgan system failure with unlikely return to any meaningful baseline or recovery past this hospitalization. After numerous conversations with patient's family members, I spoke to hospital medicine about admission, given patient is on rapid decline and we have no ability to transfer patient due to instability. Patient maxed on all medical management treatments. Hospital medicine graciously agreed for admission prior to inevitable demise. Arik Shaw: Upon assumption of care patient was critically unstable on multiple pressors status post stress dose steroid administration. Patient has had intermittent V. tach arrest for multiple hours underwent ACLS by Dr. Brown. Dr. Brown discussed the case with Dr. Gardner prior to my assumption of care and he is aware and we are comanaging the patient at this time. Dr. Gardner called POA and discussed at length, POA wants full measures taken which we will continue to pursue. In my opinion at this point anything we do is medically futile and there is no further escalation of care that is possible we will stay the course on current doses of multiple vasopressors. Max dose multiple vasopressors were continued for multiple hours in the emergency department and ultimately patient continued to decline with lowering of mean arterial pressures. Dr. Gardner and I both discussed with power of commercial mortgage broker upon arrival as to goals of care and after much deliberation they were ready to withdraw care. Glycopyrrolate was administered and prior to withdrawing of care patient went asystolic. Continued resuscitative efforts were discontinued and patient . On 07-21-2024, the high probability of a clinically significant, sudden or life threatening deterioration of the following system(s) (pulmonary, cardiac, renal) required my full and direct attention, intervention and personal management. The time I documented below is in addition to time spent performing reported procedures but includes the following listed in this critical care notation. Total critical care time 120 minutes. <Arik Shaw MD - Last Filed: 07/21/24 21:52> Vital Signs: 07/21/24 09:59 07/21/24 10:18 07/21/24 10:23 Temperature Temperature Source Pulse Rate 63 102 H Respiratory Rate Blood Pressure 134/114 H 149/120 H Blood Pressure Mean 120 129 Blood Pressure Source 02 Sat by Pulse Oximetry 99 91 L Oxygen Delivery Method Mechanical Ventilation Mechanical Ventilation Oxygen Flow Rate (LPM) 15 Fraction of Inspired Oxygen 07/21/24 10:30 07/21/24 11:00 07/21/24 11:15 Temperature Temperature Source Pulse Rate 94 H 141 H 74 Respiratory Rate 18 18 9 L Blood Pressure 149/120 H 121/101 H 55/38 L Blood Pressure Mean Blood Pressure Source Arterial Line 02 Sat by Pulse Oximetry 100 89 L 99 Oxygen Delivery Method Mechanical Ventilation Oxygen Flow Rate (LPM) Fraction of Inspired Oxygen 07/21/24 11:30 07/21/24 11:30 07/21/24 11:45 Temperature Temperature Source Pulse Rate 73 90 Respiratory Rate 18 8 L 18 Blood Pressure 49/33 L 82/53 L Blood Pressure Mean Blood Pressure Source Arterial Line Arterial Line 02 Sat by Pulse Oximetry 95 100 99 Oxygen Delivery Method Mechanical Ventilation Mechanical Ventilation Oxygen Flow Rate (LPM) Fraction of Inspired Oxygen 100 07/21/24 12:00 07/21/24 12:00 07/21/24 12:15 Temperature 95.5 F L 95.5 F L 96.3 F L Temperature Source Core Pulse Rate 99 H 89 92 H Respiratory Rate 99 H 18 18 Blood Pressure 68/45 L 68/46 L 62/39 L Blood Pressure Mean Blood Pressure Source Arterial Line Arterial Line 02 Sat by Pulse Oximetry 99 100 100 Oxygen Delivery Method Mechanical Ventilation Mechanical Ventilation Oxygen Flow Rate (LPM) Fraction of Inspired Oxygen 07/21/24 12:30 07/21/24 12:30 07/21/24 12:45 Temperature 96.3 F L 96.3 F L 96.3 F L Temperature Source Core Pulse Rate 101 H 100 H 89 Respiratory Rate 18 18 18 Blood Pressure 81/50 L 81/50 L 84/53 L Blood Pressure Mean Blood Pressure Source Arterial Line Arterial Line 02 Sat by Pulse Oximetry 98 98 99 Oxygen Delivery Method Mechanical Ventilation Mechanical Ventilation Oxygen Flow Rate (LPM) Fraction of Inspired Oxygen 07/21/24 13:00 07/21/24 13:00 07/21/24 13:15 Temperature 96.1 F L 96.1 F L 95.9 F L Temperature Source Core Pulse Rate 92 H 91 H 88 Respiratory Rate 18 18 18 Blood Pressure 68/45 L 68/45 L 60/40 L Blood Pressure Mean Blood Pressure Source Arterial Line Arterial Line 02 Sat by Pulse Oximetry 97 97 95 Oxygen Delivery Method Mechanical Ventilation Mechanical Ventilation Mechanical Ventilation Oxygen Flow Rate (LPM) Fraction of Inspired Oxygen 07/21/24 13:30 07/21/24 13:30 07/21/24 13:42 Temperature 95.9 F L 95.9 F L Temperature Source Pulse Rate 84 85 Respiratory Rate 18 18 18 Blood Pressure 58/38 L 58/38 L Blood Pressure Mean Blood Pressure Source Arterial Line 02 Sat by Pulse Oximetry 95 95 95 Oxygen Delivery Method Mechanical Ventilation Oxygen Flow Rate (LPM) Fraction of Inspired Oxygen 100 07/21/24 13:45 07/21/24 14:00 07/21/24 14:00 Temperature 95.9 F L 95.7 F L 95.7 F L Temperature Source Core Pulse Rate 83 73 74 Respiratory Rate 18 18 18 Blood Pressure 60/38 L 59/36 L 59/36 L Blood Pressure Mean Blood Pressure Source Arterial Line Arterial Line Arterial Line 02 Sat by Pulse Oximetry 95 97 97 Oxygen Delivery Method Mechanical Ventilation Mechanical Ventilation Mechanical Ventilation Oxygen Flow Rate (LPM) Fraction of Inspired Oxygen 07/21/24 14:15 07/21/24 14:30 07/21/24 14:30 Temperature 95.5 F L 95.5 F L 95.5 F L Temperature Source Core Pulse Rate 71 71 71 Respiratory Rate 18 18 18 Blood Pressure 53/32 L 49/28 L 49/28 L Blood Pressure Mean Blood Pressure Source Arterial Line Arterial Line Arterial Line 02 Sat by Pulse Oximetry 99 100 100 Oxygen Delivery Method Mechanical Ventilation Mechanical Ventilation Mechanical Ventilation Oxygen Flow Rate (LPM) Fraction of Inspired Oxygen 07/21/24 14:35 07/21/24 14:40 07/21/24 14:45 Temperature 95.4 F L 95.4 F L 95.4 F L Temperature Source Core Core Pulse Rate 70 69 68 Respiratory Rate 18 18 18 Blood Pressure 48/27 L 47/26 L 45/25 L Blood Pressure Mean Blood Pressure Source Arterial Line Arterial Line Arterial Line 02 Sat by Pulse Oximetry 100 100 100 Oxygen Delivery Method Mechanical Ventilation Oxygen Flow Rate (LPM) Fraction of Inspired Oxygen 07/21/24 14:50 07/21/24 15:00 07/21/24 15:00 Temperature 95.4 F L 95.2 F L 95.2 F L Temperature Source Core Pulse Rate 67 66 66 Respiratory Rate 18 18 18 Blood Pressure 44/25 L 43/23 L 43/23 L Blood Pressure Mean Blood Pressure Source Arterial Line Automatic Cuff Arterial Line 02 Sat by Pulse Oximetry 99 100 100 Oxygen Delivery Method Mechanical Ventilation Mechanical Ventilation Mechanical Ventilation Oxygen Flow Rate (LPM) Fraction of Inspired Oxygen 07/21/24 15:10 07/21/24 15:15 07/21/24 15:18 Temperature 95.2 F L 95.0 F L Temperature Source Pulse Rate 64 63 73 Respiratory Rate 18 18 18 Blood Pressure 42/22 L 40/21 L 49/33 L Blood Pressure Mean Blood Pressure Source Arterial Line Arterial Line 02 Sat by Pulse Oximetry 96 99 Oxygen Delivery Method Mechanical Ventilation Mechanical Ventilation Oxygen Flow Rate (LPM) Fraction of Inspired Oxygen 07/21/24 15:20 07/21/24 15:30 07/21/24 15:30 Temperature 95.0 F L 95.0 F L 94.8 F L Temperature Source Core Core Pulse Rate 63 60 60 Respiratory Rate 18 18 18 Blood Pressure 39/21 L 38/20 L 38/20 L Blood Pressure Mean Blood Pressure Source Arterial Line 02 Sat by Pulse Oximetry 99 96 96 Oxygen Delivery Method Mechanical Ventilation Mechanical Ventilation Oxygen Flow Rate (LPM) Fraction of Inspired Oxygen 07/21/24 15:45 07/21/24 16:00 07/21/24 16:15 Temperature 94.8 F L 94.6 F L 94.5 F L Temperature Source Pulse Rate 57 L 51 L 51 L Respiratory Rate 18 18 18 Blood Pressure 40/21 L 42/22 L 45/23 L Blood Pressure Mean Blood Pressure Source Arterial Line Arterial Line Arterial Line 02 Sat by Pulse Oximetry 95 99 100 Oxygen Delivery Method Mechanical Ventilation Mechanical Ventilation Mechanical Ventilation Oxygen Flow Rate (LPM) Fraction of Inspired Oxygen 07/21/24 16:30 07/21/24 16:45 07/21/24 17:00 Temperature 94.3 F L 94.1 F L 93.9 F L Temperature Source Pulse Rate 56 L 55 L 54 L Respiratory Rate 18 18 18 Blood Pressure 51/26 L 52/27 L 52/27 L Blood Pressure Mean Blood Pressure Source Arterial Line Arterial Line Arterial Line 02 Sat by Pulse Oximetry 99 95 95 Oxygen Delivery Method Mechanical Ventilation Mechanical Ventilation Mechanical Ventilation Oxygen Flow Rate (LPM) Fraction of Inspired Oxygen 07/21/24 17:15 07/21/24 17:30 07/21/24 17:45 Temperature 93.9 F L 93.7 F L 93.7 F L Temperature Source Pulse Rate 54 L 55 L 54 L Respiratory Rate 18 18 18 Blood Pressure 54/29 L 60/32 L 62/32 L Blood Pressure Mean Blood Pressure Source Arterial Line Arterial Line Arterial Line 02 Sat by Pulse Oximetry 100 100 99 Oxygen Delivery Method Mechanical Ventilation Mechanical Ventilation Mechanical Ventilation Oxygen Flow Rate (LPM) Fraction of Inspired Oxygen 07/21/24 18:00 07/21/24 18:15 07/21/24 18:30 Temperature 93.6 F L 93.6 F L 93.6 F L Temperature Source Pulse Rate 55 L 54 L 53 L Respiratory Rate 16 18 18 Blood Pressure 66/34 L 64/33 L 67/35 L Blood Pressure Mean Blood Pressure Source Arterial Line Arterial Line Arterial Line 02 Sat by Pulse Oximetry 100 97 95 Oxygen Delivery Method Mechanical Ventilation Mechanical Ventilation Mechanical Ventilation Oxygen Flow Rate (LPM) Fraction of Inspired Oxygen 07/21/24 18:45 07/21/24 22:38 Temperature 93.4 F L 0 F L Temperature Source Pulse Rate 54 L 0 L Respiratory Rate 18 0 L Blood Pressure 70/36 L 0/0 L Blood Pressure Mean Blood Pressure Source Arterial Line 02 Sat by Pulse Oximetry 97 Oxygen Delivery Method Mechanical Ventilation Oxygen Flow Rate (LPM) Fraction of Inspired Oxygen Lab Data Lab Results 07/21/24 11:16: Specimen Source [place], O2 % 100%, ABG pH 6.90 L*, ABG pCO2 28.6 L, ABG pO2 99.5, ABG HCO3 5.5 L, ABG Total CO2 6.4 L, ABG O2 Saturation 93, ABG Base Excess -27.3 L 07/21/24 11:56: WBC 19.7 H, RBC 4.00 L, Hgb 11.6 L, Hct 37.4, MCV 93.5, MCH 29.0, MCHC 31.0 L, RDW 19.2 H, Plt Count 142, MPV 10.2, Neut % (Auto) 90.4 H, L ymph % (Auto) 4.2 L, [place] % (Auto) 2.9, Eos % (Auto) 0.2, Baso % (Auto) 0.3, N eut # (Auto) 17.8 H, Lymph # (Auto) 0.8, [place] # (Auto) 0.6, Eos # (Auto) 0.0, Baso # (Auto) 0.1, Total Counted 100, Neutrophils % (Manual) 95 H, Lymphocytes % (Manual) 3 L, Monocytes % (Manual) 2, Platelet Estimate Normal, RBC Morphology Normal, Acanthocytes (Spur) 2+, Sodium 128 L, Potassium 4.8, Chloride 99, Carbon Dioxide 8 L*, Anion Gap 25.8 H, BUN 66 H, Creatinine 3.30 H, Estimated GFR 14 L* , Est GFR ( Amer) 17 L*, Glucose 159 H, Calcium 10.2, Total Bilirubin 1.3, AST 1724 H*, ALT 406 H*, Alkaline Phosphatase 161 H, Ammonia 209 H, T roponin I 0.33 H, Total Protein 5.0 L D, Albumin 1.7 L, Globulin 3.3 H, A lbumin/Globulin Ratio 0.5 L, TSH 9.56 H, Thyroxine (T4) 2.2 L, Urine Color Dark yellow, Urine Appearance Turbid, Urine pH 5.5, Ur Specific [place] 1.025, Urine Protein Trace, Urine Glucose (UA) Negative, Urine Ketones Trace, Urine Blood 1+ A, Urine Nitrate Negative, Urine Bilirubin Negative, Urine Urobilinogen 0.2, Ur Leukocyte Esterase 2+ A, Urine RBC Occasional, Urine WBC 5-10, Ur Squamous Epith Cells Occasional, Urine Bacteria 1+, Salicylates < 1.0 L, Acetone Level None detected, Blood Type A Negative, Antibody Screen Positive 07/21/24 12:06: PT 31.8 H, INR 3.25 H, APTT 139.0 H* D, Lactate 12.9 H, Magnesium 2.2, NT-Pro-B Natriuret Pep 1350 H, Plasma/Serum Alcohol < 10 07/21/24 18:00: Lactate 12.8 H, Troponin I 1.80 H Orders (Tests/Meds): ED MEDICATIONS Discontinued Medications Generic Name Dose Route Start Last Admin Trade Name Freq PRN Reason Stop Dose Admin Dextrose 50 ml 07/21/24 14:40 07/21/24 10:01 Dextrose 50% 50ml Syringe (Crash Cart) IVP 07/21/24 14:41 50 ml ONCE ONE Administration Epinephrine HCl 1 mg 07/21/24 14:40 07/21/24 11:30 Epinephrine 0.1 Mg/Ml 10ml Syringe (Crash Cart) IV 08/20/24 14:39 0.5 mg NEEDED PRN Administration Code Blue Med Administration Glycopyrrolate 0.2 mg 07/21/24 20:10 07/21/24 20:26 Glycopyrrolate 0.2 Mg/Ml 1ml Vial IV 07/21/24 20:11 0.2 mg ONCE ONE Administration Hydrocortisone Sodium Succinate 100 mg 07/21/24 14:40 07/21/24 11:31 Hydrocortisone Sod Succinate 100mg Vial IV 07/21/24 14:41 100 mg ONCE ONE Administration Piperacillin Sod/Tazobactam 100 mls @ 200 mls/hr 07/21/24 11:43 07/21/24 16:28 Sod 4.5 gm/ Sodium Chloride IV 07/21/24 12:12 200 mls/hr ONCE ONE Administration Vancomycin/PEG/NADA/Lysine/Water 1.75 gm in 350 mls @ 175 mls/hr 07/21/24 12:00 07/21/24 17:08 Vancomycin 1.75gm/350ml (Peg) Premix IV 07/21/24 13:59 175 mls/hr ONCE ONE Administration Phenylephrine HCl 10 mg/ 251 mls @ 542.16 mls/hr 07/21/24 12:30 07/21/24 13:59 Sodium Chloride IV 08/20/24 12:29 360 mcg/min .Q28M KEN 542.16 mls/hr Administration Protocol 360 MCG/MIN Amiodarone HCl 150 mg/ 103 mls @ 600 mls/hr 07/21/24 14:40 07/21/24 10:20 Dextrose IV 07/21/24 14:50 600 mls/hr ONCE ONE Administration Calcium Chloride 2 gm/ Sodium 270 mls @ 67.5 mls/hr 07/21/24 14:40 07/21/24 10:43 Chloride IV 07/21/24 14:41 67.5 mls/hr ONCE ONE Administration Epinephrine HCl 5 mg/ Sodium 255 mls @ 61.2 mls/hr 07/21/24 14:45 07/21/24 17:05 Chloride IV 08/20/24 14:44 Infused .Q4H10M KEN Titration Protocol 20 MCG/MIN Norepinephrine Bitartrate 8 mg 258 mls @ 61.92 mls/hr 07/21/24 14:45 07/21/24 12:30 / Sodium Chloride IV 08/20/24 14:44 32 mcg/min .Q4H10M KEN 61.92 mls/hr Titration Protocol 32 MCG/MIN Sodium Chloride 1,000 mls @ 999 mls/hr 07/21/24 16:54 07/21/24 10:00 Sod Chlor 0.9% 1000ml Bag IV 07/21/24 17:54 999 mls/hr .Q1H1M ONE Administration Sodium Chloride 1,000 mls @ 999 mls/hr 07/21/24 16:59 07/21/24 11:23 Sod Chlor 0.9% 1000ml Bag IV 07/21/24 17:59 999 mls/hr .Q1H1M ONE Administration Sodium Bicarbonate 150 meq/ 1,150 mls @ 150 mls/hr 07/21/24 18:15 07/21/24 11:25 Dextrose IV 08/20/24 18:14 150 mls/hr .Q7H40M KEN Administration Sodium Bicarbonate 150 meq/ 1,150 mls @ 150 mls/hr 07/21/24 18:45 07/21/24 18:19 Dextrose IV 08/20/24 18:44 150 mls/hr .Q7H40M KEN Administration Lidocaine HCl 125 mg 07/21/24 14:40 07/21/24 10:48 Lidocaine 2% 100 Mg/5ml Syringe (Crash Cart) IV 07/21/24 14:41 125 mg ONCE ONE Administration Miscellaneous 1 each 07/21/24 11:45 07/21/24 12:16 Vancomycin Consult Request NOTAPPLIC 08/20/24 11:44 1 each CONSULT PHARMACY KEN Administration Pantoprazole Sodium 40 mg 07/21/24 14:40 07/21/24 11:06 Pantoprazole 40mg Vial IV 07/21/24 14:41 40 mg ONCE ONE Administration Sodium Bicarbonate 50 meq 07/21/24 14:40 07/21/24 11:58 Sodium Bicarb 8.4% 50ml Syringe (Crash Cart) IV 08/20/24 14:39 50 meq ONCE PRN Administration Code Blue Med Administration Sodium Chloride 10 ml 07/21/24 14:40 Sodium Chloride 0.9% 10ml Vial IV 08/20/24 14:39 NEEDED PRN dilute protonix ORDERS Category Date Time Status Antibody Identification Stat BBK 07/21/24 11:56 Received Type and Screen Stat BBK 07/21/24 11:56 Completed POCUS Point of Care (ER Only) Stat Exams 07/21/24 10:12 Taken Acetone, Serum (Rapid) Stat Lab 07/21/24 11:56 Completed Ammonia Stat Lab 07/21/24 11:56 Completed Complete Blood Count Auto Diff Stat Lab 07/21/24 11:56 Completed Comprehensive Metabolic Panel Stat Lab 07/21/24 11:56 Completed Ethanol [Ethyl Alcohol] Stat Lab 07/21/24 12:06 Completed Lactic Acid Follow Up (RFLX 1) Stat Lab 07/21/24 18:00 Completed Lactic Acid Stat Lab 07/21/24 12:06 Completed Magnesium Stat Lab 07/21/24 12:06 Completed NT Pro Brain Natriuretic Pep. Stat Lab 07/21/24 12:06 Completed PT INR [Prothrombin Time INR] Stat Lab 07/21/24 12:06 Completed PTT [Activated Partial Thrombo Time] Stat Lab 07/21/24 12:06 Completed Salicylate Stat Lab 07/21/24 11:56 Completed T4 (Thyroxine) Stat Lab 07/21/24 11:56 Completed TSH [Thyroid Stimulating Hormone] Stat Lab 07/21/24 11:56 Completed Troponin I Q3H Lab 07/21/24 18:00 Completed Troponin I Stat Lab 07/21/24 11:56 Completed Urinalysis and Microscopic Stat Lab 07/21/24 11:56 Completed Blood Culture Stat Micro 07/21/24 16:23 Received Urine Culture Stat Micro 07/21/24 11:56 Received ABG [Arterial Blood Gas] Stat RT 07/21/24 11:48 Ordered Arterial Blood Gas Routine RT 07/21/24 11:16 Completed Medical Decision Narrative: This is a 69-year-old female with reported history of atrial fibrillation, liver failure, COPD presenting as code 500. Family called out because patient was hard to arouse, minimally responsive, seemed as if she was having difficulty breathing. EMS arrived. Upon arrival, EMS was concern for CVA given lack of movement on right side. Flight team was called outside emergency department and prior to flight team being able to transfer patient, patient lost pulses. Total downtime less than 2 minutes without CPR. Patient was brought to the emergency department for further evaluation. Pulseless, ET tube in place via flight team, decreased right-sided breath sounds, but ET tube nearly hubbed. Patient's pupils fixed and dilated. Abdomen is soft, distended. She does have bilious material versus coffee-ground emesis in her mouth. Glucose 43, amp of D50 was administered. Patient now on second liter of fluids with transport teams. Given respiratory failure, intubation, decreased breath sounds on the right, ET tube was replaced by me. Direct visualization with video laryngoscopy, tube was replaced with 8.0. Copious amounts of gastric materials in the back of the throat. 20 cm at the lip. Bilateral breath sounds, end-tidal placed. Patient's initial rhythm upon arrival asystole. Numerous rounds of ACLS were performed. Patient received multiple rounds of ACLS, epinephrine, as well as 2 g calcium, bicarbonate push. Multiple rounds of ACLS, patient multiple episodes of ROSC. Ventricular tachycardia with pulses and ventricular tachycardia without pulses. Patient was given amiodarone bolus 150 mg lost pulses again. Was given bolus of amiodarone second to total out 300 mg. Recurrent episodes of ROSC obtained, v tach. 1mg/kg lidocaine administered and ROSC achieved without loss of pulses again around 11:02 AM on 07/21. Independent interpretation of patient's EKG wide-complex tachycardia which is regular, ventricular tachycardia. 131 bpm, QRS 129, QTc 396. Appears to be normal axis. Right radial art line was placed, catheter ended up blowing artery and pressure was held. Right femoral arterial line was attempted to be placed, however arterial line supplies insufficient. Another attempt at right femoral arterial line successful with new femoral arterial line kits. Waveform confirmed. Left femoral CVC was placed triple-lumen under ultrasound guidance. Patient was started on norepinephrine drip, given 40 mg Protonix, 100 mg hydrocortisone. Patient maintains hypotensive blood pressures, was given another amp of bicarb. This seemed to help patient's pressures. Only lab initially was ABG off of A- line. I independently interpreted patient's ABG pH 6.90, CO2 low at 28, bicarb low at 5 with lactate over 10. Isotonic bicarb drip was hung and another amp (3 total at this point) of bicarb pushed for recurrent hypotension. Pressures responded favorably. Vasopressin started. Continues to have hypotensive pressures, more bicarb administered, patient started on phenylephrine drip. Independent interpretation of further workup with hyponatremia 128. Patient's potassium normal at 4.8. Anion gap 26. Liver function consistent with acute renal failure. Chemistry with acute renal failure BUN 66/creatinine 3.3. Venous lactate after fluids continuing to increase 12.9. BNP elevated at 1300, troponin elevated. Patient's coags consistent with developing DIC and coagulopathy. Urinalysis with blood and leukocyte esterase, potentially urinary tract infection. Patient empirically antibiosis with Zosyn and vancomycin. CT scans were ordered, however patient was never stable enough to go to CT scanner. I contacted patient's daughter and discussed likely outcome from the situation being multisystem organ failure. Daughter states that she wants to continue doing everything, and told me do not just let her . Reassurance was offered to daughter. I stated that we would not let her and we would continue maximal therapy, however we have reached the On what we are able to provide for this patient and she is in multiorgan system failure with unlikely return to any meaningful baseline or recovery past this hospitalization. Arik Shaw: Upon assumption of care patient was critically unstable on multiple pressors status post stress dose steroid administration. Patient has had intermittent V. tach arrest for multiple hours underwent ACLS by Dr. Brown. Dr. Brown discussed the case with Dr. Gardner prior to my assumption of care and he is aware and we are comanaging the patient at this time. Dr. Gardner called POA and discussed at length, POA wants full measures taken which we will continue to pursue. In my opinion at this point anything we do is medically futile and there is no further escalation of care that is possible we will stay the course on current doses of multiple vasopressors. Max dose multiple vasopressors were continued for multiple hours in the emergency department and ultimately patient continued to decline with lowering of mean arterial pressures. Dr. Gardner and I both discussed with power of commercial mortgage broker upon arrival as to goals of care and after much deliberation they were ready to withdraw care. Glycopyrrolate was administered and prior to withdrawing of care patient went asystolic. Continued resuscitative efforts were discontinued and patient . On 07-21-2024, the high probability of a clinically significant, sudden or life threatening deterioration of the following system(s) (pulmonary, cardiac, renal) required my full and direct attention, intervention and personal management. The time I documented below is in addition to time spent performing reported procedures but includes the following listed in this critical care notation. Total critical care time 120 minutes. Procedures <Joey Brown MD - Last Filed: 07/22/24 07:28> Intubation Mallampati Score:: Class I Time out performed: No sedative: none Laryngoscope: fiber optic video scope (s3) ET Tube Size: 8 ET Tube Uncuffed: No Tube Secured Depth (cm): 20 Tube Secured Location: lips Tube Placement Confirmation: visualized tube passing through cords and equal breath sounds bilaterally Patient Tolerated Procedure: well Intubation Complications: none Central Line Placement Left Femoral: Time Out Performed: No Patient Placed on Monitor/Pulse Ox: Yes MD Prep: mask, gown and gloves Central Line Prep: Chlorhexidine scrub Ultrasound Used for Placement: Yes Central Line Lumen Inserted: triple Post Procedure: sutured in place, good blood return, all ports aspirated, flushed, capped and sterile dressing applied Patient Tolerated Procedure: well Complications: none Arterial Line Time Out Performed: No Size (Gauge): 20 Technique Used: guide wire technique Post-Procedure: line sutured into place Patient Tolerated Procedure: well Complications: none Site: right and femoral Additional Comments: 20-gauge right radial arterial line attempted prior to this under direct ultrasound guidance. Was unsuccessful given vasopressors 20-gauge right femoral arterial line attempted prior to this under direct ultrasound guidance. Unsuccessful due to hardware failure. Critical Care <Joey Brown MD - Last Filed: 07/22/24 07:28> Critical Care Time Critical Care Time: Yes (Respiratory, renal, cardiac, infectious disease) Attestation: On 07/21/24, the high probability of a clinically significant, sudden or life threatening deterioration of the following system(s) required my full and direct attention, intervention and personal management. The time I documented below is in addition to time spent performing reported procedures but includes the following listed in this critical care notation. Total Time Total Critical Care Time: 300
--- NOTE | 2024-07-21 12:01 | PC.NURSE ---
IS SPEAKING WITH FROM ABOUT PT TRANSFER
[2024-07-21 12:16] LABS: Blood, Urine 1+ (Negative); Glucose,Urine (UA) Negative (Negative); Ketones,Urine TRACE (Negative); Leukocyte Esterase,Urine 2+ (Negative); Microscopic, Urine URINE MICROSCOPIC (MICROSCOPIC); Nitrate,Urine Negative (Negative); PH,Urine 5.5 (5.0-8.5); Protein,Urine TRACE (Negative); Specific Gravity, Urine 1.025 (1.005-1.030); Urobilinogen,Urine 0.2 EU/dl (0.2)
[2024-07-21] MEDS: VANCOMYCIN CONSULT REQUEST 1 EACH NOTAPPLIC (12:16)
[2024-07-21 12:20] LABS: Basophils # 0.1 K/mm3 (0-0.2); Basophils % 0.3 % (0.1-2.0); Eosinophils % 0.2 % (0.1-12.0); Hematocrit 37.4 % (37.0-47.0); Hemoglobin 11.6 g/dL (12.2-16.2); Lymphocytes # 0.8 K/mm3 (0.7-4.5); Lymphocytes % 4.2 % (10-50); Mean Corpuscular Volume 93.5 fl (81-99); Mean Platelet Volume 10.2 fl (7.4-10.4); Monocytes # 0.6 K/mm3 (0.1-1.0); Monocytes % 2.9 % (1.7-9.3); Neutrophils # 17.8 K/mm3 (1.8-7.8); Neutrophils % 90.4 % (37.0-80.0); Platelet Count 142 K/mm3 (142-424); Red Cell Distribution Width 19.2 % (11.5-17.5); White Blood Count 19.7 K/mm3 (4.8-10.8)
[2024-07-21 12:25] LABS: Magnesium 2.2 mg/dl (1.6-2.3)
[2024-07-21 12:26] LABS: INR 3.25 (0.9-1.1); Prothrombin Time 31.8 seconds (9.2-12.1)
[2024-07-21] MEDS: PHENYLEPHRINE HCL 10 MG in 0.9 % SODIUM CHLORIDE 250 ML 75.3 MG IV (12:30)
--- NOTE | 2024-07-21 12:33 | PC.NURSE ---
Sputum specimen sent to lab
[2024-07-21 12:35] LABS: NT Pro Brain Natriuretic Pep. 1350 pg/mL (0-125)
[2024-07-21 12:37] LABS: Ammonia 209 umol/L (9-30)
[2024-07-21 12:47] LABS: Appearance,Urine Turbid (Clear); Bilirubin,Urine Negative (Negative); Color,Urine Dark Yellow (Yellow)
[2024-07-21 12:48] LABS: Ethyl Alcohol < 10 mg/dl (0-10)
[2024-07-21 12:48] LABS: Alanine Aminotransferase 406 U/L (12-78); Albumin Level 1.7 g/dl (3.5-5.0); Albumin/Globulin Ratio 0.5 (1.1-1.8); Alkaline Phosphatase 161 U/L (38-126); Anion Gap 25.8 mEq/L (5-15); Bilirubin,Total 1.3 mg/dl (0.2-1.3); Blood Urea Nitrogen 66 mg/dl (7-17); Calcium 10.2 mg/dl (8.4-10.2); Chloride 99 mmol/L (98-107); Globulin 3.3 g/dL (1.3-3.2); Glucose 159 mg/dl (74-100); Potassium 4.8 mmoL/L (3.5-5.1); Sodium 128 mmol/L (136-145)
[2024-07-21 12:49] LABS: Salicylate < 1.0 mg/dL (2.0-20.0)
[2024-07-21 12:50] LABS: Carbon Dioxide 8 mmol/L (22.0-30.0)
[2024-07-21 12:54] LABS: Estimated Glomerular Filt Rate 14 ml/min (>60); GFR (African American) 17 ML/MIN (>60)
[2024-07-21 12:58] LABS: Bacteria,Urine 1+ /lpf; RBC,Urine Occasional #/hpf (0-3); Squamous Epithelial Cell,Urine Occasional #/hpf (0-5)
[2024-07-21 13:00] LABS: MANUAL DIFFERENTIAL MANUAL DIFFERENTIAL (MANUAL DIFF)
[2024-07-21 13:03] LABS: Troponin I 0.33 ng/ml (0.00-0.034)
[2024-07-21 13:05] LABS: T4 (Thyroxine) 2.2 ug/dl (5.53-11.0)
[2024-07-21 13:18] LABS: Thyroid Stimulating Hormone 9.56 uIU/mL (0.465-4.68)
--- NOTE | 2024-07-21 13:20 | PC.NURSE ---
lab at unable to get blood culture, aware
--- NOTE | 2024-07-21 13:26 | PC.NURSE ---
Addendum entered by Sincere Olivares RN 07/21/24 14:29: DR. MARTINEZ GAVE VERBAL ORDERS FOR ALL DRIP TITRATIONS AND THE PATIENT'S RESPONSE. Original Note: CODE BLUE NOTE TEAM: . PHYSICIANS: DR. MARTINEZ RN: SINCERE, RN; AMANDA, RN; CRIS, RN; ISAAK Garcia, RN; KIM Wolfe, RN; RESPIRATORY: SANKET CODE BLUE NOTE: 0959 - PATIENT BROUGHT BY EMS ACCOMPANIED WITH AIR METHODS FLIGHT TEAM. CARDIAC ARREST IN PROGRESS. CPR VIA AUTO-PULSE. ETT IN PLACE WITH SUSPECTED MALPOSITION BY MD. IMMEDIATELY REMOVED UPON PATIENT ARRIVAL. PATIENT VENTILATED WITH BVM. CPR CONTINUED. EMS REPORTS 1 LITER OF NORMAL SALINE AND 5 DOSES OF IVP NEOSYNEPHRINE OF 200MG. 1000 - 1MG EPINEPHRINE IVP, RIGHT TIBIA IO 1001 - 1 AMP D50, RIGHT TIBIA IO 1002 - PULSE CHECK, ASYSTOLE 1003 - 1 MG EPINEPHRINE IVP, RIGHT TIBIA IO 1004 - PULSE CHECK, ASYSTOLE 1006 - PULSE CHECK, V-FIB NOTED, DEFIBRILLATION 200J, CPR IMMEDIATELY RESUMED 1006 - 1 MG EPINEPHRINE IVP, RIGHT TIBIA IO 1007 - DR. MARTINEZ INTUBATION ATTEMPT SUCCESSFUL, SIZE 8.0, 20 CM AT LIP 1008 - PULSE CHECK, PULSE PALPATED, ROSC ACHIEVED, WIDE COMPLEX TACHYCARDIA NOTED ON MONITOR 1010 - 50 MEQ SODIUM BICARBONATE IVP, LEFT RIGHT IO 1013 - 22G IV ESTABLISHED LEFT WRIST BY JUANPABLO LYNCH 1016 - NOREPINEPHRINE DRIP 8 MCG/MIN INITIATED PER DR. MARTINEZ, ECG OBTAINED 1018 - 134/114, HR 118 1020 - 150MG AMIODARONE BOLUS ADMINISTERED OVER 10 MINS., R WRIST 22G 1020 - RIGHT RADIAL ARTERIAL LINE ATTEMPTED UNSUCCESSFULLY BY DR. MARTINEZ 1024 - NO PALPABLE PULSE, CPR INITIATED VIA AUTO-PULSE 1025 - 1MG EPINEPHERINE IVP, RIGHT TIBIA IO 1026 - PULSE CHECK, PULSE PALPATED, ROSC ACHIEVED, WIDE COMPLEX TACHYCARDIA NOTED ON MONITOR 1029 - SPO2 100%, HR 88, 121/101 1032 - NO PALPABLE PULSE, CPR INITIATED VIA AUTO-PULSE, 1MG EPINEPHERINE IVP, RIGHT TIBIA IO 1034 - PULSE CHECK, PULSE PALPATED, ROSC ACHIEVED, WIDE COMPLEX TACHYCARDIA NOTED ON MONITOR 1035 - RIGHT FEMORAL ARTERIAL LINE ATTEMPTED UNSUCCESSFULLY BY DR. MARTINEZ 1040 - EPINEPHRINE DRIP 2 MCG/MIN INITIATED, RIGHT TIBIA IO 1043 - 2G CALCIUM IVP, RIGHT TIBIA IO 1044 - NO PALPABLE PULSE, CPR INITIATED VIA AUTO-PULSE, 1MG EPINEPHRINE IVP, RIGHT TIBIA IO 1046 - PULSE CHECK, PULSE PALPATED, ROSC ACHIEVED, WIDE COMPLEX TACHYCARDIA NOTED ON MONITOR 1047 - HR122, UNABLE TO OBTAIN BP 1048 - LIDOCAINE IVP 125 MG, RIGHT TIBIA IO 1050 - RIGHT FEMORAL ARTERIAL LINE ESTABLISHED BY DR. MARTINEZ 1055 - NO PALPABLE PULSE, CPR INITIATE VIA AUTO-PULSE, 1MG EPINEPHRINE IVP, RIGHT TIBIA IO 1057 - PULSE CHECK, PEA NOTED, CPR CONTINUED 1058 - 1MG EPINEPHRINE IVP, RIGHT TIBIA IO 1059 - PULSE CHECK, PEA NOTED 1102 - PULSE CHECK, PULSE PALPATED, ROSC ACHIEVED, WIDE COMPLEX TACHYCARDIA NOTED ON MONITOR, BP 110/74, HR 95, SPO2 98% 1106 - 40MG PROTONIX IVP, RIGHT TIBIA IO 1107 - EPINEPHRINE DRIP INCREASED TO 8 MCG/MIN AND NOREPINEPHRINE 14 MCG/MIN 1110 - HR 87, 68/50 ARTERIAL 1111 - EPINEPHRINE DRIP 10 MCG/MIN, NOREPINEPHRINE 18 MCG/MIN 1113 - NOREPINEPHRINE 22 MCG/MIN, 55/38 ARTERIAL LINE, HR 75 1115 - NOREPINEPHRINE 30 MCG/MIN, 54/37 ARTERIAL LINE 1118 - LEFT FEMORAL TRIPLE LUMEN ESTABLISHED BY DR. MARTINEZ, HR 72, BP 53/47 ARTERIAL LINE 1126 - VASOPRESSIN DRIP 0.04 UNITS/MIN, LEFT FEMORAL CVC 1130 - PATIENT NOTED TO BE MARKEDLY HYPERTENSION, 0.5MG EPINEPHRINE IVP CVC PER DR. MARTINEZ, 50 MEQ SODIUM BICARBONATE IVP CVC 1131 - 100MG HYDROCORTISONE IVP, LEFT FEMORAL CVC 1133 - HR 117, 114/70 ARTERIAL BP, 99%, PATIENT PLACED ON VENTILATOR (TIDAL VOLUME 420, PEEP 5, RATE 18, O2 100%) 1145 - 16 [place] TEMPERATURE SENSING FLORES CATHETER INSERTED, Po OLIVARES RN 1145 - 77/52 ARTERIAL, HR 90, 99%, NOREPINEPHERINE 28 MCG/MIN 1150 - 16 [place] NG TUBE TO RIGHT NARE, GASTRIC CONTENTS RETURNED WITH SUCTION, 300 ML DARK/MALODOROUS CONTENT NOTED 1158 - T 95.4 FLORES, 67/47 ARTERIAL, 99%, SODIUM BICARBONATE 50 MEQ IVP LEFT CVC 1210 - HR 94, T 96.1 FLORES, SPO2 100%, 65/39 ARTERIAL BP 1221 - HR 98, T 96.3 MARK, 71/40 ARTERIAL BP, 100% 1229 - PHENYLEPHRINE DRIP INITIATED, 50MCG/MIN 1235 - PHENYLEPHRINE 75MCG/MIN, HR 85, SPO2 98%, T 96.3 FLORES, 91/52 ARTERIAL 1240 - REPORT GIVEN TO ISAAK BARRETO RN AT THIS TIME
[2024-07-21 13:27] LABS: Lactic Acid 12.9 mmol/L (0.7-2.1)
--- NOTE | 2024-07-21 13:28 | PC.NURSE ---
critical lactic called to DR Cook by Jennyfer Briseno
--- NOTE | 2024-07-21 13:35 | PC.NURSE ---
CALLED [facility] FOR AN UPDATE SINCE IT BEEN AN HOUR WITH NO WORD, MONO FROM [facility] STATES THEY ARE STILL WAITING FOR THE ATTENDING ON ICU UNIT TO CALL BACK ONCE HE HAD THEY WOULD GIVE US A CALL BACK
[2024-07-21 13:43] LABS: Aspartate Amino Transferase 1724 U/L (14-36)
--- NOTE | 2024-07-21 13:43 | PC.NURSE ---
UPDATED ON STATUS AND HE ASKED FOR ME TO CALL [facility]
--- NOTE | 2024-07-21 13:43 | PC.NURSE ---
CALLED [facility] TO SEE ABOUT ACCEPTANCE FOR PT WHO WAS CARDIAC ARREST AT OUR FACILITY , THEY ARE PUTTING PAGE OUT TO ICU TEAM AND WILL CALL BACK
[2024-07-21] MEDS: PHENYLEPHRINE HCL 10 MG in 0.9 % SODIUM CHLORIDE 250 ML 542.16 MG IV (13:59)
--- NOTE | 2024-07-21 14:00 | PC.NURSE ---
IS SPEAKING WITH MD AT THIS TIME
--- NOTE | 2024-07-21 14:30 | PC.NURSE ---
Lab Stated that Patients PTT was over 139 but [facility] wouldn't allow them to change it in the system.
[2024-07-21 14:40] LABS: Acetone, Serum (Rapid) None Detected (None Detect)
--- NOTE | 2024-07-21 14:59 | PC.NURSE ---
bj spoke with elisha from pharmacy
--- NOTE | 2024-07-21 15:30 | PC.NURSE ---
PATIENT HYPOTHERMIC. PROVIDER AWARE. MALLORIE MENDOZA APPLIED.
--- NOTE | 2024-07-21 15:43 | PC.NURSE ---
HS aware of admission.
[2024-07-21 15:57] LABS: Lymphocytes % 3 % (10-50); Monocytes % 2 % (2-9); Neutrophils % 95 % (42-76); Total Cells Counted 100
[2024-07-21 15:58] LABS: Acanthocytes 2+
[2024-07-21 16:00] LABS: Platelet Estimate Normal; RBC Morphology Normal
--- NOTE | 2024-07-21 16:11 | PC.NURSE ---
hospitalist from second floor at bedside speaking to family
[2024-07-21 16:12] LABS: Reflex Lactic Add Lactic Reflex
--- NOTE | 2024-07-21 16:25 | PC.NURSE ---
at bs with us
[2024-07-21] MEDS: PIPERACILLIN/TAZO 4.5 GM in 0.9 % SODIUM CHLORIDE 100 ML IV (16:28)
--- NOTE | 2024-07-21 16:31 | PC.NURSE ---
AT BS AND PT FAMILY MEMBERS AT BS WELL
--- NOTE | 2024-07-21 16:33 | PC.NURSE ---
Patient remains intubated without sedation with a GCS of less than 6 triggering a referral to [facility]. I spoke with Eileen Mendoza, adult daycare coordinator, who stated to inform [facility] at the time of cardiac . No case number given until report of cardiac .
--- NOTE | 2024-07-21 16:34 | PC.NURSE ---
family returned to bs
[2024-07-21] MEDS: VANCOMYCIN/WATER FOR INJ (PEG) 1.75 GM/350 ML PIGGYBACK IV (17:08)
[2024-07-21 18:36] LABS: Lactic Acid Follow Up (RFLX 1) 12.8 mmol/L (0.7-2.1)
--- NOTE | 2024-07-21 18:58 | PC.NURSE ---
Hospitalist bedside giving report to the shift supervisor hospitalist. They also spoke with the family to include the daughter POA about status of the pt. [facility] states they will consult with the family in 15 minutes to reassess status of the pt.
--- NOTE | 2024-07-21 19:34 | PC.NURSE ---
Spoke with Dr. MORA and informed him the pts daughter would like to speak with him about continuity of care and what she would like to happen at this time.
--- NOTE | 2024-07-21 19:35 | PC.NURSE ---
mixed and changed phenylephine drip, verified with Adenike GERONIMO
[2024-07-21 20:10] LABS: Reflex Lactic (2 hrs) Add Lactic Reflex
--- NOTE | 2024-07-21 20:15 | PC.NURSE ---
Kan Shaw MD and Malorie Gibbons, RN bedside to speak with pt's family regarding end of life. Pt's daughter (also POA) would like to stop all medications and live-saving measures. 2014
[2024-07-21] MEDS: GLYCOPYRROLATE 0.2 MG/ML 1ML VIAL IV (20:26)
--- NOTE | 2024-07-21 20:50 | PC.NURSE ---
Foreign Correspondent notified @ 2046
--- NOTE | 2024-07-21 20:52 | PC.NURSE ---
This RN spoke with Malorie at [facility]. . Per Malorie they will not be following this pt and she is released.
--- NOTE | 2024-07-21 21:01 | PC.NURSE ---
This RN called [facility] per family request. This RN gave all details to service. They stated they will arrange pickup. Called @2054
--- NOTE | 2024-07-21 21:52 | P.DN_ITS ---
Pronouncement Note Date and Time of Date of : 07/21/24 Time of : 20:36 PCOD Preliminary cause of : Cardiac arrest Summary Additional details: Patient had precipitous decline at home with unilateral weakness, was in the process of being air EVAC to out from [facility] by air EMS and patient coded, presented to the emergency department as a code underwent multiple rounds of ACLS with eventual return of spontaneous circulation. Patient had critical multiorgan system failure and was too unstable to go for definitive imaging. Patient had protracted course requiring multiple vasopressors but ultimately our efforts were not enough to stabilize the patient and she from an unknown definitive cause but my current suspicion is that she had a devastating CVA. Additional Data Confirmation of : no pulse, no respirations, no heart sounds and pupils fixed and dilated Family: at bedside Attending/PCP notified?: No Attending physician: Arik Shaw Autopsy should be considered if:: Unknown or unanticipated medical complications Cause is not known with certainty on clinical grounds Would allay concerns of the public/family regarding Unexplained/unexpected apparently natural and not subject to a forensic medical jurisdiction DOA Within 24 hours of admission Sustained or apparently sustained injury while in the hospital Result of high risk, infectious and contagious disease Obstetric and pediatric arising from environmental or occupational hazard Unexplained/unexpected from dental, medical, or surgical diagnostic procedures and/or therapies Would disclose a known or suspected illness which also may have a bearing on survivors or recipients of transplanted organs Autopsy requested?: No Does not meet criteria forensic computer examiner notified?: Yes Organ bank notified?: Yes Advance directives: No
--- NOTE | 2024-07-21 22:59 | PC.NURSE ---
Patient left with [facility] at 9808.
== END 2024-07-21 22:38 | disposition expired ==
PROVIDERS: Emergency Provider Emergency Medicine
DX: I46.9 Cardiac arrest, cause unspecified (principal); D65 Disseminated intravascular coagulation [defibrination syndrome]; A41.9 Sepsis, unspecified organism; R57.0 Cardiogenic shock
CPT/HCPCS: 31500; 80053; 80320; 80329; 81001; 82009; 82140; 82803; 83605; 83735; 83880; 84436; 84443; 84484; 85007; 85025; 85027; 85610; 85730; 86850; 86870; 87040; 87077; 87086; 87088; 87186; 92950; 93005; 96360; 96361; 96374; 96375; 96376; 99291; 99292; C1751; G0480; J0171; J0282; J1596; J2543; J3372; J7030; J7060